=== PATIENT | male | born 1950 | race Caucasian/White ===

== ENCOUNTER 2018-03-24 15:50 | Inpatient (IN) | payer OTHER ==
--- NOTE | 2018-03-24 16:11 | PDOC ---
Attending Attestation - HPI HPI: 03/24/18 17:14 The patient is a year old male, with a significant past medical history of cerebral palsy and polio with left hemiparesis, s/p 1 week hospital stay in December 2017, who presents to the emergency department with his sister and MELTER LOADER for evaluation of SOB since 3PM. As per the sister and MELTER LOADER, the patient was feeling well prior to attending a green party at his adult day care today, however, the daycare staff called the family to inform the patient had become SOB. The patient states he was feeling well earlier today. The patient denies chest pain, shortness of breath, headache and dizziness. The patient denies fever, chills, nausea, vomit, diarrhea and constipation. The patient denies dysuria, frequency, urgency and hematuria. Allergies: NKDA - Physicial Exam PE: 03/24/18 17:17 Constitutional: Awake, alert, oriented. No acute distress. Head: Normocephalic. Atraumatic Eyes: PERRL. EOMI. Conjunctivae are not pale. ENT: (+) Dry oral mucosa. Mucous membranes are intact. Posterior pharynx without exudates or erythema. Uvula midline. Neck: Supple. Full ROM. No lymphadenopathy. Cardiovascular: (+) Tachycardic. Regular rhythm. S1, S2 regular. Distal pulses are 2+ and symmetric. Pulmonary/Chest: (+) Tachypneic, Coarse BS bilaterally with diffuse wheezing. No rales or rhonchi. Abdominal: (+) Suprapubic catheter in place and changed x1 week ago by Dr. Coffman draining yellow clear urine now. Soft and non-distended. There is no tenderness. No rebound, guarding or rigidity. No organomegaly. No palpable masses. Good bowel sounds. Back: No CVA tenderness. Musculoskeletal: (+) LUE contracted hand and extended bilateral LE without edema. Pedal pulses intact. No edema. No cyanosis. No clubbing. Full range of motion in all extremities. Nocalf tenderness. Radial/pedal pulses are intact and 2+ bilaterally Skin: (+) Hot to the touch. No petechiae. No purpura. Neurological: Alert and oriented to person, place, and time. Cranial nerves II -XII are grossly intact. Strength is grossly symmetric. No sensory deficits. Psychiatric: Good eye contact. Normal interaction, affect and behavior. <Vanna Medina - Last Filed: 03/24/18 17:17> - Resident Resident Name: Brigid Krishna - ED Attending Attestation I have performed the following: I have examined & evaluated the patient, The case was reviewed & discussed with the resident, I agree w/resident's findings & plan, Exceptions are as noted - Critical Care Time Total Critical Care Time: 45 Critical Care Statement: The care of this patient involved high complexity decision making to prevent further life threatening deterioration of the patient 's condition and/or to evaluate & treat vital organ system(s) failure or risk of failure. - Medical Decision Making 03/24/18 16:11 I, Dr. Roxanne Cr, DO, attest that this document has been prepared under my direction and personally reviewed by me in its entirety. I further attest, that it accurately reflects all work, treatment, procedures and medical decision -making performed by me. 03/24/18 17:06 a/p: 67yo male with hx of polio and CP presnets from his adult daycare program for eval of sob/cough -was fine prior to going to daycare -presents with sister and home health aide who cares for him at home -pt hypoxic with wheezing upon arrival -pt with cough - rhonchorous bs b/l -no LE edema -will send labs, trop, ekg, lactate, cultures -will start broad spectrum abx - recently hospitalized at [facility] (his normal hospital) for a week in December -will need admission 03/24/18 17:49 elevated R hemidiaphragm no acute pna seen elevated wbc ua shows poss uti broad spectrum abx ordered and given pt feeling better after neb tx suspect acute bronchitis and uti will admit resident discussed the case with [facility] who accepts the patient to service <Roxanne Cr - Last Filed: 03/24/18 17:53> Heart Score/ECG Review - ECG Intrepretation Comment:: 03/24/18 17:05 sinus tach at 122, nl axis, nl interval, pac, no acute st/t wave findings <Roxanne Cr - Last Filed: 03/24/18 17:53>
[2018-03-24 16:12] VITALS: BMI 22.4
[2018-03-24] MEDS ORDERED: ALBUTEROL SO4 2.5/IPRATROPIUM 0.5 INH SOL 3 ML VIAL.NEB. NEB ONE ×5 (16:28→18:49)
[2018-03-24] MEDS ORDERED: ACETAMINOPHEN 1000 MG/100 ML VIAL (NON FORMULARY) IVPB ONE (16:29)
[2018-03-24] MEDS ORDERED: methylPREDNISolone NA SUCC 125 MG/2 ML VIAL IVPB ONE (16:29)
[2018-03-24] MEDS ORDERED: SODIUM CHLORIDE 0.9% 1000 ML INFUS.BAG IV ONE (16:29)
[2018-03-24] MEDS ORDERED: VANCOMYCIN 1,000 MG in DEXTROSE 5%-WATER - 250 ML IVPB ONE (16:31)
[2018-03-24] MEDS ORDERED: PIPERACILLIN/TAZOB 4.5 GM 4.5 GM in DEXTROSE 5%-WATER 100 ML IVPB ONE (16:31)
[2018-03-24 16:32] LABS: BASO % 0.2 % (0-2.0); EOS % 0.2 % (0-4.5); HEMATOCRIT 43.7 % (35.4-49); HEMOGLOBIN 14.4 GM/dL (11.7-16.9); LYMPH % 3.8 % (8-40); MCH 29.7 pg (25.7-33.7); MEAN CELL VOLUME 89.9 fl (80-96); MEAN PLT VOLUME 9.4 fl (7.5-11.1); MONO % 13.7 % (3.8-10.2); NEUT % 82.1 % (42.8-82.8); PLATELET COUNT 130 K/MM3 (134-434); RBC 4.86 M/mm3 (4.00-5.60); RDW 15.6 % (11.9-15.9); WHITE BLOOD COUNT 18.4 K/mm3 (4.0-10.0)
[2018-03-24 16:34] LABS: VENOUS PH 7.37 (7.32-7.42); VENOUS PO2 36.7 mmHg (28-48)
[2018-03-24] MEDS ORDERED: PIPERACILLIN/TAZOB 4.5 GM 4.5 GM/100 ML BAG IVPB ONE (16:38)
[2018-03-24] MEDS ORDERED: methylPREDNISolone NA SUCC 125 MG/2 ML VIAL ONE (16:38)
--- NOTE | 2018-03-24 16:38 | PDOC ---
History of Present Illness - General Chief Complaint: Respiratory Distress Stated Complaint: Respiratory Distress Time Seen by Provider: 03/24/18 15:55 History Source: Patient, Care Provider Exam Limitations: No Limitations - History of Present Illness Initial Comments: 03/24/18 16:38 67 year old with past medical history of polio, congenital L hemiparesis, cerebal palsy and recent hospitalization who was BIBA for complaints of shortness of breath while at a social program at assisted living. At bedside his nursing home admissions director denied recent illness, fever, nausea, diarrhea and notes that the patient has a suprapubic catheter. The patient denies chest pain, dizziness, abdominal pain or chills. PMHX: as in HPI PSHX: Meds: baclofen, acetazolamide, atorvastatin, oxybutynin Allergies: none Tob: none Etoh: none Rec drugs: none PCP: Freddy Past History - Past Medical History Allergies/Adverse Reactions: Allergies Allergy/AdvReac Type Severity Reaction Status Date / Time shrimp Allergy Unknown Hives Verified 03/25/18 03:12 Home Medications: Ambulatory Orders Atorvastatin Ca [Lipitor] 40 mg PO HS 03/24/18 Baclofen 20 mg PO TID 03/24/18 Multivitamin [One Daily] 1 each PO DAILY 03/24/18 Oxybutynin Chloride [Ditropan Xl] 10 mg PO DAILY 03/24/18 Albuterol 2.5/Ipratropium 0.5 [Duoneb -] 1 amp NEB Q4H #120 amp 03/30/18 Albuterol Sulfate Inhaler - [Ventolin HFA Inhaler -] 2 puff IH Q4H PRN #1 inhaler 03/30/18 Amox-Tr/K Cl [Augmentin Suspension -] 750 mg PO BID@0800,1730 #120 ml 03/30/18 Pantoprazole Sodium [Protonix -] 40 mg PO DAILY #30 tablet.ec 03/30/18 Prednisone 10 mg PO BID #30 tablet 03/30/18 COPD: No Other medical history: cerebral palsy, dyskinesia , polio - Suicide/Smoking/Psychosocial Hx Smoking History: Never smoked Substance Use Type: None *Physical Exam - Vital Signs Last Vital Signs Temp Pulse Resp BP Pulse Ox 102.0 F H 140 H 30 H 148/100 78 L 03/24/18 16:09 03/24/18 16:09 03/24/18 16:09 03/24/18 16:09 03/24/18 16:09 - Physical Exam Comments: GENERAL: Awake, alert, and fully oriented, in no acute distress HEAD: No signs of trauma, normocephalic, atraumatic EYES: PERRLA, EOMI, sclera anicteric, conjunctiva clear ENT: Auricles normal inspection, hearing grossly normal, nares patent, oropharynx clear without exudates. Moist mucosa NECK: Normal ROM, supple, no lymphadenopathy, JVD, or masses LUNGS: No distress, speaks full sentences, + wheeze HEART: Regular rate and rhythm, normal S1 and S2, no murmurs, rubs or gallops, peripheral pulses normal and equal bilaterally. ABDOMEN: Soft, nontender, normoactive bowel sounds. No guarding, no rebound. No masses EXTREMITIES : Normal inspection, Normal range of motion, no edema. No clubbing or cyanosis. NEUROLOGICAL: Normal speech, normal gait, no focal sensorimotor deficits SKIN: Warm, Dry, normal turgor, no rashes or lesions noted ED Treatment Course - LABORATORY CBC & Chemistry Diagram: 03/27/18 06:15 03/29/18 05:30 - ADDITIONAL ORDERS Additional order review: Laboratory Results 03/24/18 16:05 VBG pH 7.37 POC VBG pCO2 65.0 H* POC VBG pO2 36.7 Mixed VBG HCO3 36.7 H 03/24/18 16:05 RBC 4.86 MCV 89.9 MCHC 33.0 RDW 15.6 MPV 9.4 Neutrophils % 82.1 Lymphocytes % 3.8 L Monocytes % 13.7 H Eosinophils % 0.2 Basophils % 0.2 Medical Decision Making - Medical Decision Making 67 year old with past medical history of polio, congenital L hemiparesis, cerebal palsy and recent hospitalization who was BIBA for complaints of shortness of breath while at a social program at assisted living. DDX: bronchitis vs PNA W/U: - sepsis set ED Course: Patient satting 97% on 9L NC 03/24/18 18:00 Pt given duoneb treatment, feels improved 03/24/18 19:49 UA: wbc: 424 Pt admitted to medicine service *DC/Admit/Observation/Transfer Diagnosis at time of Disposition: UTI (urinary tract infection), Bronchitis - Discharge Dispostion Disposition: VNS/HOME HEALTH CARE Condition at time of disposition: Improved - Prescriptions - Referrals - Patient Instructions - Post Discharge Activity
[2018-03-24 16:46] LABS: INR 1.18 (0.83-1.09); PROTHROMBIN TIME (PATIENT) 13.3 SEC (9.7-13.0)
[2018-03-24 16:56] LABS: ALBUMIN 2.9 g/dl (3.4-5.0); ANION GAP 6 MMOL/L (8-16); BILIRUBIN,TOTAL 0.4 mg/dL (0.2-1.0); BLOOD UREA NITROGEN 16 mg/dL (7-18); CALCIUM 8.8 mg/dL (8.5-10.1); CHLORIDE 93 mmol/L (98-107); CO2 36 mmol/L (21-32); CREATININE 0.7 mg/dL (0.7-1.3); GLUCOSE,RANDOM 160 mg/dL (74-106); POTASSIUM 3.8 mmol/L (3.5-5.1); SGOT/AST 25 U/L (15-37); SGPT/ALT 31 U/L (12-78); SODIUM 135 mmol/L (136-145); TOT PROT 6.6 g/dl (6.4-8.2)
[2018-03-24 16:58] LABS: ALK PHOS 139 U/L (45-117)
[2018-03-24 17:12] LABS: URINE APPEARANCE TURBID; URINE BILIRUBIN NEGATIVE (<2.0 mg/dL); URINE COLOR AMBER; URINE GLUCOSE (UA) NEGATIVE (NEGATIVE); URINE KETONE NEGATIVE (NEGATIVE); URINE LEUK ESTERASE 3+ (NEGATIVE); URINE NITRITE NEGATIVE (NEGATIVE); URINE PROTEIN 2+ (NEGATIVE); URINE UROBILINOGEN 4.0 E.U/dl mg/dL (0.2-1.0)
[2018-03-24] MEDS ORDERED: ACETAMINOPHEN INJECTION 100 ML IVPB ONE (17:16)
[2018-03-24 17:26] LABS: EPI CELLS FEW /HPF (FEW); URINE BACTERIA RARE /hpf (NONE SEEN); URINE MUCUS MANY
[2018-03-24] MEDS ORDERED: ALBUTEROL SO4 0.083% IH SOL 2.5 MG/3 ML VIAL.NEB. NEB ONE ×2 (17:26→17:27)
[2018-03-24] MEDS ORDERED: VANCOMYCIN 1 GRAM (PRE-DOCKED) 1,000 MG/250 ML BAG IVPB ONE (17:26)
[2018-03-24] MEDS ORDERED: ALBUTEROL SO4 8 GM HFA INHALER IH PRN (18:58)
--- NOTE | 2018-03-24 18:58 | PN ---
Teaching Attending Note Name of Resident: Anjelica Arredondo ATTENDING PHYSICIAN STATEMENT I saw and evaluated the patient. I reviewed the resident's note and discussed the case with the resident. I agree with the resident's findings and plan as documented. SUBJECTIVE: Patient is a 67M w/ pmhx of cerebral palsy , polio with L hemiparesis , with chronic suprapubic catheter (30Yrs) presented in the ED with shortness of breath. Presented to ED with tachypnea and tachycardic. Patient presented with saturatioon of 74%, place on NR in ED. satrurating >93%. with fever of 102F. Patient was at [facility] a week ago fr Pneumonia, was discharged home a week ago. OBJECTIVE: Vital Signs Temperature 102.0 F H 03/24/18 16:09 Pulse Rate 117 H 03/24/18 17:43 Respiratory Rate 22 03/24/18 17:43 Blood Pressure 145/78 03/24/18 17:43 O2 Sat by Pulse Oximetry (%) 96 03/24/18 17:43 CBCD WBC 18.4 K/mm3 (4.0-10.0) H 03/24/18 16:05 RBC 4.86 M/mm3 (4.00-5.60) 03/24/18 16:05 Hgb 14.4 GM/dL (11.7-16.9) 03/24/18 16:05 Hct 43.7 % (35.4-49) 03/24/18 16:05 MCV 89.9 fl (80-96) 03/24/18 16:05 MCHC 33.0 g/dl (32.0-35.9) 03/24/18 16:05 RDW 15.6 % (11.9-15.9) 03/24/18 16:05 Plt Count 130 K/MM3 (134-434) L 03/24/18 16:05 MPV 9.4 fl (7.5-11.1) 03/24/18 16:05 CMP Sodium 135 mmol/L (136-145) L 03/24/18 16:05 Potassium 3.8 mmol/L (3.5-5.1) 03/24/18 16:05 Chloride 93 mmol/L (98-107) L 03/24/18 16:05 Carbon Dioxide 36 mmol/L (21-32) H 03/24/18 16:05 Anion Gap 6 MMOL/L (8-16) L 03/24/18 16:05 BUN 16 mg/dL (7-18) 03/24/18 16:05 Creatinine 0.7 mg/dL (0.7-1.3) 03/24/18 16:05 Creat Clearance w eGFR > 60 (>60) 03/24/18 16:05 Random Glucose 160 mg/dL (74-106) H 03/24/18 16:05 Calcium 8.8 mg/dL (8.5-10.1) 03/24/18 16:05 Total Bilirubin 0.4 mg/dL (0.2-1.0) 03/24/18 16:05 AST 25 U/L (15-37) 03/24/18 16:05 ALT 31 U/L (12-78) 03/24/18 16:05 Alkaline Phosphatase 139 U/L (45-117) H 03/24/18 16:05 Total Protein 6.6 g/dl (6.4-8.2) 03/24/18 16:05 Albumin 2.9 g/dl (3.4-5.0) L 03/24/18 16:05 CARDIAC ENZYMES Troponin I < 0.02 ng/ml (0.00-0.05) 03/24/18 16:05 Current Medications Generic Name Dose Route Start Last Admin Trade Name Freq PRN Reason Stop Dose Admin Albuterol/Ipratropium 1 amp 03/24/18 19:00 Duoneb - NEB Q4H YASMINE Heparin Sodium (Porcine) 5,000 unit 03/24/18 19:00 Heparin - SQ TID YASMINE Piperacillin Sod/Tazobactam 100 mls @ 200 mls/hr 03/24/18 21:00 Sod 4.5 gm/ Dextrose IVPB Q6H-IV YASMINE Protocol Piperacillin Sod/Tazobactam 100 mls @ 200 mls/hr 03/24/18 21:00 Sod 4.5 gm/ Dextrose IVPB 03/25/18 09:29 Q6H-IV YASMINE Protocol PE: generally awake and answers questions . Chest: Decreased BS bl retracting. CVS: S1S2 positive , tachycardic EXT: deformed rest of PE per resident's note Urine Test Results Urine Color Filomena 03/24/18 16:55 Urine Appearance Turbid 03/24/18 16:55 Urine pH 7.0 (5.0-8.0) 03/24/18 16:55 Ur Specific [place] 1.025 (1.001-1.035) 03/24/18 16:55 Urine Protein 2+ (NEGATIVE) H 03/24/18 16:55 Urine Glucose (UA) Negative (NEGATIVE) 03/24/18 16:55 Urine Ketones Negative (NEGATIVE) 03/24/18 16:55 Urine Blood 1+ (NEGATIVE) H 03/24/18 16:55 Urine Nitrite Negative (NEGATIVE) 03/24/18 16:55 Urine Bilirubin Negative (<2.0 mg/dL) 03/24/18 16:55 Ur Leukocyte Esterase 3+ (NEGATIVE) H 03/24/18 16:55 Ur Epithelial Cells Few /HPF (FEW) 03/24/18 16:55 Urine Bacteria Rare /hpf (NONE SEEN) 03/24/18 16:55 Urine Mucus Many 03/24/18 16:55 CXR: Hiatel hernia on the right side. ASSESSMENT AND PLAN: Patient is a 67M w/ pmhx of cerebral palsy , polio with L hemiparesis , with chronic suprapubic catheter (30Yrs) presented in the ED with shortness of breath. Presented to ED with tachypnea and tachycardic. Patient presented with saturatioon of 74%, place on NR in ED. satrurating >93%. with fever of 102F. Patient was at [facility] a week ago fr Pneumonia, was discharged home a week ago. # Acute hypoxic hypercapnic respiratoty failure On bipap ,continue to monitor, pulm on the case # sepsis due to UTI and B/L pneumonia can't r/o aspiration ( patient was eating and patient went at a green party where everyone was sick) at the green party On zosyn since recently was discharged from [facility]. Given a dose of Vanco in ED. on Steroid 60 q8 IV, protonix ID on the case DVt px; Heparin sq
--- NOTE | 2018-03-24 19:27 | HP ---
CHIEF COMPLAINT: shortness of breath PCP: HISTORY OF PRESENT ILLNESS: 67M w/ pmhx of cerebral palsy (with chronic suprapubic catheter x30 years), polio with L hemiparesis presented in the ED with shortness of breath. According to pt's sister and home health aide, pt was about to go home after attending a constitution party at his adult daycare center when he started complaining to the nurse at the center that he was having trouble breathing. The nurse at the adult daycare center contacted pt's family around 2:50pm and called EMS to bring pt to the hospital. Pt denies any symptoms earlier that day. Denies chest pain, headaches/dizziness, nausea/vomiting, abdominal pain, urinary/bowel symptoms, weakness. He does complain of acid reflux yesterday after eating spaghetti and took Tums which relieved his symptoms. During the past week, pt complained of a mild cough with no productive sputum. Pt also admits that he has been exposed to many people at his daycare center with a cold. Pt has a breathing machine at home for albuterol, but denies using it within the past week. Upon initial presentation, pt was found to be febrile at 102, tachycardic at 135 , with dry cough and wheezes. Of note, pt was recently admitted to [facility] for PNA and was discharged on antibiotics. Additionally, pt's suprapubic catheter is also changed once a month and was recently changed yesterday (03/23) by Dr. Coffman. ER course was notable for: (1) CXR, blood and urine cx pending (2) In the ED, pt given Vanc/Zosyn, Solumedrol, Tylenol (3) U/A: 2+ Pro, 1+ blood, 3+ LE Recent Travel: Denies PAST MEDICAL HISTORY: Cerebral palsy (w/ chronic suprapubic catheter x30yrs) Polio w/ L hemiparesis PAST SURGICAL HISTORY: Chronic suprapubic catheter appendectomy x20 years ago Social History: Smoking: Denies Alcohol: Denies Drugs: Denies Family History: Mother- Alzheimer's, heart disease, DM, HTN, HLD Maternal Aunt- Breast cx Allergies No Known Allergies Allergy (Verified 03/24/18 16:09) HOME MEDICATIONS: Medication Instructions Recorded Atorvastatin Ca [Lipitor] 40 mg PO HS 03/24/18 Baclofen 20 mg PO TID 03/24/18 Multivitamin [One Daily] 1 each PO DAILY 03/24/18 Oxybutynin Chloride [Ditropan Xl] 10 mg PO DAILY 03/24/18 traZODone HCL [Trazodone HCl] 50 mg PO HS 03/24/18 REVIEW OF SYSTEMS CONSTITUTIONAL: fever Absent: chills, diaphoresis, generalized weakness, malaise, loss of appetite, weight change HEENT: Absent: rhinorrhea, nasal congestion, throat pain, throat swelling, difficulty swallowing, mouth swelling, ear pain, eye pain, visual changes CARDIOVASCULAR: Absent: chest pain, syncope, palpitations, irregular heart rate, lightheadedness , peripheral edema RESPIRATORY: shortness of breath, dry cough Absent: dyspnea with exertion, orthopnea, wheezing, stridor, hemoptysis GASTROINTESTINAL: Absent: abdominal pain, abdominal distension, nausea, vomiting, diarrhea, constipation, melena, hematochezia GENITOURINARY: Absent: dysuria, frequency, urgency, hesitancy, hematuria, flank pain, genital pain MUSCULOSKELETAL: Absent: myalgia, arthralgia, joint swelling, back pain, neck pain SKIN: Absent: rash, itching, pallor ENDOCRINE: Absent: unexplained weight gain, unexplained weight loss, heat intolerance, cold intolerance NEUROLOGIC: wheelchair bound, chronic reyna due to urinary retention Absent: headache, focal weakness or paresthesias, dizziness, seizure, mental status changes, bowel incontinence PHYSICAL EXAMINATION Vital Signs - 24 hr 03/24/18 03/24/18 03/24/18 16:00 16:09 17:03 Temperature 102 F H 102.0 F H Pulse Rate 135 H 140 H Pulse Rate [ 117 H Apical] Respiratory 24 30 H 24 Rate Blood Pressure 152/113 148/100 Blood Pressure 147/83 [Left Arm] O2 Sat by Pulse 96 78 L 97 Oximetry (%) 03/24/18 03/24/18 17:43 18:24 Temperature 101 F H Pulse Rate Pulse Rate [ 117 H 116 H Apical] Respiratory 22 116 H Rate Blood Pressure Blood Pressure 145/78 143/80 [Left Arm] O2 Sat by Pulse 96 Oximetry (%) GENERAL: Awake, alert, and fully oriented. Respiratory distress. HEENT: AT/NC. Dry mucus membranes. LUNGS: Currently on nonrebreather. Tachypneic. Accessory muscle use noted. HEART: Tachycardic. Normal S1, S2. No murmurs, rubs, gallop noted. ABDOMEN: Abd soft, NT/ND. +BS. Suprapubic catheter in place. : Reyna bag seen with cloudy yellow urine. MUSCULOSKELETAL: U/L extremities b/l contracted. No peripheral edema. NEUROLOGICAL: Unable to perform neuro exam. PSYCHIATRIC: Cooperative. Good eye contact. Appropriate mood and affect. SKIN: No rashes or lesions noted. Laboratory Results - last 24 hr 03/24/18 03/24/18 03/24/18 16:05 16:05 16:05 WBC 18.4 H RBC 4.86 Hgb 14.4 Hct 43.7 MCV 89.9 MCH 29.7 MCHC 33.0 RDW 15.6 Plt Count 130 L MPV 9.4 Absolute Neuts (auto) 15.1 H Neutrophils % 82.1 Lymphocytes % 3.8 L Monocytes % 13.7 H Eosinophils % 0.2 Basophils % 0.2 Nucleated RBC % 0 PT with INR 13.30 H INR 1.18 H PTT (Actin FS) 33.0 VBG pH 7.37 POC VBG pCO2 65.0 H* POC VBG pO2 36.7 Mixed VBG HCO3 36.7 H Sodium Potassium Chloride Carbon Dioxide Anion Gap BUN Creatinine Creat Clearance w eGFR Random Glucose Lactic Acid Calcium Magnesium Total Bilirubin AST ALT Alkaline Phosphatase Troponin I B-Natriuretic Peptide Total Protein Albumin Urine Color Urine Appearance Urine pH Ur Specific [place] Urine Protein Urine Glucose (UA) Urine Ketones Urine Blood Urine Nitrite Urine Bilirubin Urine Urobilinogen Ur Leukocyte Esterase Urine WBC (Auto) Urine RBC (Auto) Ur Epithelial Cells Urine Bacteria Urine Mucus Blood Type Antibody Screen 03/24/18 03/24/18 03/24/18 16:05 16:05 16:05 WBC RBC Hgb Hct MCV MCH MCHC RDW Plt Count MPV Absolute Neuts (auto) Neutrophils % Lymphocytes % Monocytes % Eosinophils % Basophils % Nucleated RBC % PT with INR INR PTT (Actin FS) VBG pH POC VBG pCO2 POC VBG pO2 Mixed VBG HCO3 Sodium 135 L Potassium 3.8 Chloride 93 L Carbon Dioxide 36 H Anion Gap 6 L BUN 16 Creatinine 0.7 Creat Clearance w eGFR > 60 Random Glucose 160 H Lactic Acid 1.5 Calcium 8.8 Magnesium Total Bilirubin 0.4 AST 25 ALT 31 Alkaline Phosphatase 139 H Troponin I B-Natriuretic Peptide Total Protein 6.6 Albumin 2.9 L Urine Color Urine Appearance Urine pH Ur Specific [place] Urine Protein Urine Glucose (UA) Urine Ketones Urine Blood Urine Nitrite Urine Bilirubin Urine Urobilinogen Ur Leukocyte Esterase Urine WBC (Auto) Urine RBC (Auto) Ur Epithelial Cells Urine Bacteria Urine Mucus Blood Type A POSITIVE Antibody Screen Negative 03/24/18 03/24/18 03/24/18 16:05 16:05 16:05 WBC RBC Hgb Hct MCV MCH MCHC RDW Plt Count MPV Absolute Neuts (auto) Neutrophils % Lymphocytes % Monocytes % Eosinophils % Basophils % Nucleated RBC % PT with INR INR PTT (Actin FS) VBG pH POC VBG pCO2 POC VBG pO2 Mixed VBG HCO3 Sodium Potassium Chloride Carbon Dioxide Anion Gap BUN Creatinine Creat Clearance w eGFR Random Glucose Lactic Acid Calcium Magnesium 2.0 Total Bilirubin AST ALT Alkaline Phosphatase Troponin I < 0.02 B-Natriuretic Peptide 447.57 H Total Protein Albumin Urine Color Urine Appearance Urine pH Ur Specific [place] Urine Protein Urine Glucose (UA) Urine Ketones Urine Blood Urine Nitrite Urine Bilirubin Urine Urobilinogen Ur Leukocyte Esterase Urine WBC (Auto) Urine RBC (Auto) Ur Epithelial Cells Urine Bacteria Urine Mucus Blood Type Antibody Screen 03/24/18 16:55 WBC RBC Hgb Hct MCV MCH MCHC RDW Plt Count MPV Absolute Neuts (auto) Neutrophils % Lymphocytes % Monocytes % Eosinophils % Basophils % Nucleated RBC % PT with INR INR PTT (Actin FS) VBG pH POC VBG pCO2 POC VBG pO2 Mixed VBG HCO3 Sodium Potassium Chloride Carbon Dioxide Anion Gap BUN Creatinine Creat Clearance w eGFR Random Glucose Lactic Acid Calcium Magnesium Total Bilirubin AST ALT Alkaline Phosphatase Troponin I B-Natriuretic Peptide Total Protein Albumin Urine Color Filomena Urine Appearance Turbid Urine pH 7.0 Ur Specific [place] 1.025 Urine Protein 2+ H Urine Glucose (UA) Negative Urine Ketones Negative Urine Blood 1+ H Urine Nitrite Negative Urine Bilirubin Negative Urine Urobilinogen 4.0 e.u/dl Ur Leukocyte Esterase 3+ H Urine WBC (Auto) 424 Urine RBC (Auto) 39 Ur Epithelial Cells Few Urine Bacteria Rare Urine Mucus Many Blood Type Antibody Screen Current Medications Albuterol Sulfate (Ventolin Hfa Inhaler -) 2 puff IH Q4H PRN PRN Reason: SHORT OF BREATH/WHEEZING Last Admin: 03/24/18 19:51 Dose: 2 puff Albuterol/Ipratropium (Duoneb -) 1 amp NEB Q4H YASMINE Last Admin: 03/24/18 19:37 Dose: 1 amp Atorvastatin Calcium (Lipitor -) 40 mg PO HS YASMINE Heparin Sodium (Porcine) (Heparin -) 5,000 unit SQ TID YASMINE Last Admin: 03/24/18 19:50 Dose: 5,000 unit Piperacillin Sod/Tazobactam (Sod 4.5 gm/ Dextrose) 100 mls @ 200 mls/hr IVPB Q6H-IV YASMINE; Protocol Stop: 03/25/18 09:29 Methylprednisolone Sodium Succinate (Solu-Medrol -) 60 mg IVPUSH Q8H-IV YSAMINE Last Admin: 03/24/18 19:55 Dose: 60 mg Pantoprazole Sodium (Protonix Iv) 40 mg IVPUSH DAILY YASMINE Solifenacin (Vesicare -) 5 mg PO DAILY YASMINE IMAGING: CXR- pending ASSESSMENT/PLAN: 67M w/ pmhx of cerebral palsy (with chronic suprapubic catheter x30 years), Polio with L hemiparesis presented in the ED with shortness of breath admitted for sepsis 2/2 pneumonia and UTI. # Acute hypoxic hypercapnic respiratory failure -currently on BiPAP -f/u pulm consult -f/u ABG in AM #Tachycardia 2/2 sepsis, r/o arrhythmia -f/u cardio consult -trend trops -f/u repeat ECG -f/u Mag, Phos #Sepsis 2/2 CAP and UTI, r/o aspiration pna; Pt has cloudy urine seen in reyna bag and attended a constitution party around others who were also sick. -Duonebs 2.5 1 amp neg Q4H -Solumedrol 60 mg IVP Q6H -Ventolin inhaler 2 puff IH Q4H PRN -Zosyn 4.5 gm IVPB Q6H -f/u blood, sputum, urine cx -f/u lactate -f/u Legionella, S PNA Ag, RSV -f/u ID consult #Cerebral palsy; Pt has been on chronic reyna x30 years due to urinary retention and persistent UTI, gets changed C4adimn. 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 - New Patient This patient is new to me today: Yes Date on this admission: 03/24/18 - Critical Care Critical Care patient: No Hospitalist Screening - Colonoscopy Questionnaire Colonoscopy Questionnaire: Colonoscopy Questionnaire - Patient: 50 - 75 years old and never had a screening colonoscopy: Unknown History of colon or rectal polyps, or CA: Unknown History of IBD, Crohn's disease or UC: Unknown History of abdominal radiation therapy as a child: Unknown - Relative: 1 with colon or rectal CA, or polyps at age 60 or younger: Unknown Colon or rectal CA diagnosed at age 45 or younger: Unknown Multiple relatives with colon or rectal CA: Unknown - Outcome: Screening Result: Negative Screen
[2018-03-24] MEDS: ALBUTEROL SO4 2.5/IPRATROPIUM 0.5 INH SOL 3 ML VIAL.NEB. NEB SCH (19:37)
[2018-03-24] MEDS ORDERED: PIPERACILLIN/TAZOBACTAM 4.5 GM VIAL IVPB ONE (19:40)
[2018-03-24] MEDS ORDERED: DEXTROSE 5%-WATER 100 ML IVPB ONE (19:41)
[2018-03-24] MEDS: HEPARIN NA (PORCINE) 5,000 UNITS/ML 1ML VIAL SQ SCH (19:50)
[2018-03-24] MEDS: methylPREDNISolone NA SUCC 125 MG/2 ML VIAL IVPUSH SCH (19:55)
[2018-03-24] MEDS ORDERED: PIPERACILLIN/TAZOB 4.5 GM 4.5 GM in DEXTROSE 5%-WATER 100 ML IVPB SCH (21:00)
[2018-03-24] MEDS: PIPERACILLIN/TAZOB 4.5 GM 4.5 GM in DEXTROSE 5%-WATER 100 ML IVPB SCH (21:02)
[2018-03-24] MEDS: ATORVASTATIN CA 40 MG TABLET (FP) PO SCH (21:03)
[2018-03-25 00:11] LABS: ARTERIAL BLD GAS O2 SATURATION 99.4 % (90-98.9); ARTERIAL BLOOD GAS BASE EXCESS 3.1 meq/l (-2-2); ARTERIAL BLOOD GAS pH 7.29 (7.35-7.45)
[2018-03-25 00:14] LABS: ALLENS TEST POSITIVE
[2018-03-25] MEDS: ALBUTEROL SO4 2.5/IPRATROPIUM 0.5 INH SOL 3 ML VIAL.NEB. NEB SCH ×6 (00:17→21:36)
[2018-03-25 00:20] LABS: ARTERIAL BLOOD GAS PCO2 67.9 mmHg (35-45)
[2018-03-25] MEDS ORDERED: DEXTROSE 5%-WATER 100 ML IVPB ONE ×3 (01:07→18:17)
[2018-03-25] MEDS ORDERED: PIPERACILLIN/TAZOBACTAM 4.5 GM VIAL IVPB ONE ×3 (01:07→18:16)
[2018-03-25] MEDS: methylPREDNISolone NA SUCC 125 MG/2 ML VIAL IVPUSH SCH ×3 (01:13→18:33)
[2018-03-25] MEDS: PIPERACILLIN/TAZOB 4.5 GM 4.5 GM in DEXTROSE 5%-WATER 100 ML IVPB SCH ×3 (02:03→18:33)
[2018-03-25] MEDS: HEPARIN NA (PORCINE) 5,000 UNITS/ML 1ML VIAL SQ SCH ×3 (06:11→22:23)
[2018-03-25 06:42] LABS: ARTERIAL BLD GAS O2 SATURATION 97.7 % (90-98.9); ARTERIAL BLOOD GAS PO2 98.2 mmHg (80-100); ARTERIAL BLOOD GAS pH 7.31 (7.35-7.45)
[2018-03-25 07:01] LABS: ALLENS TEST POSITIVE
[2018-03-25 07:04] LABS: ARTERIAL BLOOD GAS PCO2 73.3 mmHg (35-45)
[2018-03-25 07:34] LABS: BASO % 0.3 % (0-2.0); EOS % 0.1 % (0-4.5); HEMOGLOBIN 13.1 GM/dL (11.7-16.9); LYMPH % 2.5 % (8-40); MCH 29.5 pg (25.7-33.7); MCHC 32.8 g/dl (32.0-35.9); MONO % 4.1 % (3.8-10.2); PLATELET COUNT 89 K/MM3 (134-434); RBC 4.44 M/mm3 (4.00-5.60); RDW 15.7 % (11.9-15.9); WHITE BLOOD COUNT 11.9 K/mm3 (4.0-10.0)
[2018-03-25 08:04] LABS: ALBUMIN 2.4 g/dl (3.4-5.0); ANION GAP 4 MMOL/L (8-16); BLOOD UREA NITROGEN 16 mg/dL (7-18); CHLORIDE 97 mmol/L (98-107); CHOLESTEROL 97 mg/dL (50-200); CO2 37 mmol/L (21-32); CREATININE 0.6 mg/dL (0.7-1.3); GLUCOSE,RANDOM 210 mg/dL (74-106); MAGNESIUM 2.1 mg/dL (1.8-2.4); POTASSIUM 4.1 mmol/L (3.5-5.1); SGOT/AST 16 U/L (15-37); SGPT/ALT 28 U/L (12-78); SODIUM 138 mmol/L (136-145); TOT PROT 5.7 g/dl (6.4-8.2); TRIGLYCERIDES 102 mg/dL (35-160)
[2018-03-25 08:07] LABS: ALK PHOS 99 U/L (45-117); BILIRUBIN,TOTAL 0.6 mg/dL (0.2-1.0); HDL CHOLESTEROL 13 mg/dL (40-60)
[2018-03-25 09:26] LABS: PLATELET ESTIMATE SLT DECREASE
--- NOTE | 2018-03-25 09:30 | PN ---
Progress Note, Physician History of Present Illness: 67M w/ pmhx of cerebral palsy (with chronic suprapubic catheter x30 years), Polio with L hemiparesis presented in the ED with shortness of breath admitted for sepsis 2/2 pneumonia and UTI. - Current Medication List Current Medications: Active Medications Albuterol Sulfate (Ventolin Hfa Inhaler -) 2 puff IH Q4H PRN PRN Reason: SHORT OF BREATH/WHEEZING Last Admin: 03/24/18 19:51 Dose: 2 puff Albuterol/Ipratropium (Duoneb -) 1 amp NEB Q4H YASMINE Last Admin: 03/25/18 08:10 Dose: 1 amp Atorvastatin Calcium (Lipitor -) 40 mg PO HS [facility] Last Admin: 03/24/18 21:03 Dose: Not Given Heparin Sodium (Porcine) (Heparin -) 5,000 unit SQ TID [facility] Last Admin: 03/25/18 06:11 Dose: 5,000 unit Methylprednisolone Sodium Succinate (Solu-Medrol -) 60 mg IVPUSH Q8H-IV [facility] Last Admin: 03/25/18 01:13 Dose: 60 mg Pantoprazole Sodium (Protonix Iv) 40 mg IVPUSH DAILY [facility] Pneumococcal 13-Valent Conj Vacc (Prevnar 13 Syringe -) 0.5 ml IM .ONCE ONE Stop: 03/25/18 10:01 Solifenacin (Vesicare -) 5 mg PO DAILY [facility] - Objective Vital Signs: Vital Signs Temperature 98.4 F 03/25/18 05:00 Pulse Rate 82 03/25/18 03:00 Respiratory Rate 103 H 03/25/18 05:00 Blood Pressure 138/86 03/25/18 05:00 O2 Sat by Pulse Oximetry (%) 98 03/25/18 08:10 Cardiovascular: Yes: S1, S2 Respiratory: Yes: Diminished, On BiPap Gastrointestinal: Yes: Normal Bowel Sounds, Soft Neurological: Yes: Alert Labs: CBC, BMP 03/25/18 07:06 03/25/18 07:06 INR, PTT INR 1.18 (0.83-1.09) H 03/24/18 16:05 Problem List - Problems (1) Sepsis Assessment/Plan: - 2/2 CAP and UTI, r/o aspiration pna; -Pt has cloudy urine seen in reyna bag and attended a alliance party around others who were also sick. -Zosyn 4.5 gm IVPB Q6H -f/u blood, sputum, urine cx -f/u lactate -f/u Legionella, S PNA Ag, RSV -f/u ID consult Code(s): A41.9 - SEPSIS, UNSPECIFIED ORGANISM (2) Cerebral palsy Assessment/Plan: . -hold Baclofen 20 mg PO TID due to WRAPPER SHEETER depression given pt's current clinical state -Neuro -hold Trazodone 50 mg PO HS due to WRAPPER SHEETER depression given pt's current clinical state Code(s): G80.9 - CEREBRAL PALSY, UNSPECIFIED (3) Respiratory failure Assessment/Plan: # Acute hypoxic hypercapnic respiratory failure -currently on BiPAP -f/u pulm consult -f/u ABG -Duonebs 2.5 1 amp neg Q4H -Solumedrol 60 mg IVP Q6H -Ventolin inhaler 2 puff IH Q4H PRN Code(s): J96.90 - RESPIRATORY FAILURE, UNSP, UNSP W HYPOXIA OR HYPERCAPNIA (4) Tachycardia Assessment/Plan: - 2/2 sepsis, r/o arrhythmia -f/u cardio consult -trend trops -f/u repeat ECG -f/u Mag, Phos Code(s): R00.0 - TACHYCARDIA, UNSPECIFIED (5) Overactive bladder Assessment/Plan: Pt has been on chronic reyna x30 years due to urinary retention gets changed [id number] Code(s): N32.81 - OVERACTIVE BLADDER
[2018-03-25] MEDS: PANTOPRAZOLE SODIUM 40 MG VIAL IVPUSH SCH (09:58)
[2018-03-25] MEDS: SOLIFENACIN SUCCINATE 5 MG TAB (FP) PO SCH (09:59)
[2018-03-25] MEDS ORDERED: PNEUMOC 13-VAL CONJ-DIP CRM/PF 0.5 ML DISP.SYRIN IM ONE (10:00)
--- NOTE | 2018-03-25 10:41 | PN ---
Progress Note (short form) - Note Progress Note: ID consult dictated imp/reccd 67 year old man pmh CP/polio, chronic spt just changed 03/23 by urologist, admitted with SOB from his day program fever to 102 in ED difficult historian ?hospitalized at [facility] in December for pneumonia ?sick for 2 weeks with cough recently treated for UTI 01/15, and bronchitis 01/27 cxray difficult to read due to body habitus currently hypoxic requiring bipap ua with pyuria fever/leukocytosis /thrombocytopenia pyuria with chronic SPT (just changed) hypoxic, hypercapneic resp failure cannot r/o pneumonia/uti CP Post polio consider chest ct if stable -await pulmonary eval f/u cultures, urinary antigens mrsa nares screen continue zosyn Problem List - Problems (1) Respiratory failure with hypoxia and hypercapnia Code(s): J96.91 - RESPIRATORY FAILURE, UNSPECIFIED WITH HYPOXIA; J96.92 - RESPIRATORY FAILURE, UNSPECIFIED WITH HYPERCAPNIA (2) Pneumonia Code(s): J18.9 - PNEUMONIA, UNSPECIFIED ORGANISM (3) UTI (urinary tract infection) Code(s): N39.0 - URINARY TRACT INFECTION, SITE NOT SPECIFIED (4) Cerebral palsy Code(s): G80.9 - CEREBRAL PALSY, UNSPECIFIED (5) Suprapubic catheter Code(s): Z93.59 - OTHER CYSTOSTOMY STATUS
--- NOTE | 2018-03-25 12:09 | PN ---
Progress Note (short form) - Note Progress Note: PULMONARY CONSULTATION DICTATED 03/25/18 IMP ACUTE HYPOXEMIC RESPIRATORY FAILURE ACUTE ON CHRONIC HYPERCAPNEIC RESPIRATORY FAILURE SEPSIS LIKELY PNEUMONIA ? UTI H/O CP H/O POLIO PLAN IV ABX PER ID INHALED BRONCHODILATORS NIPPV NEEDED O2 TO MAINTAIN O2 SAT 90% OR GREATER CULTURES URINARY ANTIGENS F/U CHEST X-RAYS CHEST CT F/U ABGS DR MUNOZ Problem List - Problems (1) Cerebral palsy Code(s): G80.9 - CEREBRAL PALSY, UNSPECIFIED (2) Pneumonia Code(s): J18.9 - PNEUMONIA, UNSPECIFIED ORGANISM (3) Respiratory failure with hypoxia and hypercapnia Code(s): J96.91 - RESPIRATORY FAILURE, UNSPECIFIED WITH HYPOXIA; J96.92 - RESPIRATORY FAILURE, UNSPECIFIED WITH HYPERCAPNIA (4) Sepsis Code(s): A41.9 - SEPSIS, UNSPECIFIED ORGANISM (5) Suprapubic catheter Code(s): Z93.59 - OTHER CYSTOSTOMY STATUS (6) Tachycardia Code(s): R00.0 - TACHYCARDIA, UNSPECIFIED
--- NOTE | 2018-03-25 13:03 | CONS ---
DATE OF CONSULTATION: 03/25/2018 REFERRING PHYSICIAN: Dr. Long. History is obtained from the chart. The patient is a 67-year-old white male with past medical history of cerebral palsy with a chronic suprapubic catheter approximately 30 years, history of polio with a left hemiparesis, admitted to [facility] with increasing shortness of breath. According to the patient records, patient was about to go home after attending a alliance party at an adult daycare center, when he passed out. He complained to his nurse at the center that he was having difficulty breathing. Notified around 2:50 p.m. EMS was called. Patient denied any complaints of chest pain, headache, dizziness, nausea, vomiting or diaphoresis. He apparently complained of reflux the day prior to admission after eating some spaghetti. Apparently during the past week, the patient had been complaining of a mild nonproductive cough. Apparently recently he has been exposed to people at [facility] with URI. Apparently he also has a nebulizer at home but has not used it within the past week. On presentation in the emergency room, patient was noted to be febrile with a temperature of 102, tachycardic, rate of 135, with dry cough and bronchospasm. He was treated with inhaled bronchodilators and antibiotics and transferred to medical telemetry for further management. Of note is he was recently hospitalized at [facility] for pneumonia and was discharged on antibiotics. He also recently underwent a suprapubic catheter change by Dr. Coffman on March 23. Past medical history, again, includes cerebral palsy, polio with eft hemiparesis. Current medications include Solu-Medrol, piperacillin, albuterol, DuoNeb, Vesicare, Lipitor, and Protonix. REVIEW OF SYSTEMS: Shortness of breath, fever, chills, cough, chest pain. No palpitations. PHYSICAL EXAMINATION: General: The patient is a contracted male, thin, well developed, on BiPAP, but appears clinically in no acute respiratory distress. Vital Signs: He is currently afebrile. Blood pressure 125/70. Respiratory rate is 18. O2 saturation is 98% on 40% O2. HEENT: Normocephalic, atraumatic. Neck: Supple. Heart: Regular, S1, S2. Chest: Scattered wheezes. Abdomen: Soft. Bowel sounds are positive. Extremities: No cyanosis, edema. LABORATORY DATA: BUN 16, creatinine 0.6, lactate is 1.5. BNP is 447, INR is 1.18, WBC 11.0, hemoglobin 13.1, hematocrit 40, platelet count 89,000. There are 92 polys, 4 lymphs, and 2 monocytes. Chest x-ray: There is elevated right hemidiaphragm, rotated film, questionable increased infiltrate in left mid lung field. Blood gas: Initial pH 7.29, pCO2 of 67, pO2 of 236, bicarbonate 31, saturation of 99, now is on BiPAP. Most recent: 7.31, pCO2 of 73, pO2 of 98, bicarbonate of 35, and a saturation 97, that was BiPAP, with an IPAP of 14, EPAP of 6, at a rate of 14. IMPRESSION: 1. Acute hypoxemic respiratory failure. 2. Acute on chronic hypercapnic respiratory failure. 3. Likely pneumonia, 4. Sepsis. ? Pneumonia ? 5. History of cerebral palsy. 6. History of polio with left hemiparesis. PLAN: BiPAP, follow up arterial blood gases, supplemental O2 to maintain O2 saturation 90% or greater, antibiotics as per Infectious Disease, obtain cultures, follow up chest x-rays, also inhaled bronchodilators. MIKAYLA MUNOZ M.D. STEWART/[id number] MTDD
--- NOTE | 2018-03-25 13:18 | CON.CARD ---
Consult Consult Specialty:: Cardiology Referred by:: Dr. Long Reason for Consultation:: Tachycardia - History of Present Illness History of Present Illness: Patient is a 67 year old male with a PMHx of Cerebral palsy, Polio with left hemiparesis, chronic suprapubic catheter (30+ years and changed once a month) who was sent from his adult daycare center by EMS after patient was complaining of shortness of breath. According to medical records, patient aide and sister report that he was complaining of acid reflux and cough with no sputum. Upon initial presentation in ED, patient was found to have sepsis. Further workup revealed UTI and Pneumonia and is currently on Antibiotics Patient is able to respond to questions. Denies shortness of breath, chest pain , abdominal pain, chest pain, palpitations, nausea, vomiting. - History Source History Provided By: Patient, Medical Record Limitations to Obtaining History: Clinical Condition - Past Medical History Additional Medical History: Cerebral Palsy. Polio with Left hemiparesis - Past Surgical History Past Surgical History: Yes: Appendectomy - Alcohol/Substance Use Hx Alcohol Use: No History of Substance Use: reports: None - Smoking History Smoking history: Never smoked Home Medications - Allergies Allergies/Adverse Reactions: Allergies Allergy/AdvReac Type Severity Reaction Status Date / Time shrimp Allergy Unknown Hives Verified 03/25/18 03:12 - Home Medications Home Medications: Ambulatory Orders Atorvastatin Ca [Lipitor] 40 mg PO HS 03/24/18 Baclofen 20 mg PO TID 03/24/18 Multivitamin [One Daily] 1 each PO DAILY 03/24/18 Oxybutynin Chloride [Ditropan Xl] 10 mg PO DAILY 03/24/18 traZODone HCL [Trazodone HCl] 50 mg PO HS 03/24/18 Review of Systems Unable to obtain ROS, reason: Clinical condition Vital Signs: Vital Signs Temperature 97.3 F L 03/25/18 09:35 Pulse Rate 84 03/25/18 09:35 Respiratory Rate 18 03/25/18 09:35 Blood Pressure 125/70 03/25/18 09:35 O2 Sat by Pulse Oximetry (%) 98 03/25/18 08:10 Constitutional: Yes: No Distress, Calm Eyes: Yes: Conjunctiva Clear HENT: Yes: Atraumatic, Normocephalic Neck: Yes: Other (no JVD) Respiratory: Yes: Diminished (bilaterally) Gastrointestinal: Yes: WNL, Normal Bowel Sounds, Soft Renal/: Yes: Other (Suprapubic catheter) Cardiovascular: Yes: WNL, Regular Rate and Rhythm JVD: No Heart Sounds: Yes: S1, S2 Extremities: Yes: Other (contracted upper and lower extremities) Edema: No Peripheral Pulses WNL: Yes Neurological: Yes: Alert - Other Data Labs, Other Data: CBC, BMP 03/25/18 07:06 03/25/18 07:06 INR, PTT INR 1.18 (0.83-1.09) H 03/24/18 16:05 Troponin, BNP 03/24/18 03/24/18 03/24/18 16:05 16:05 20:20 Troponin I < 0.02 < 0.02 B-Natriuretic Peptide 447.57 H Troponin, BNP 03/24/18 03/24/18 03/24/18 16:05 16:05 20:20 Troponin I < 0.02 < 0.02 B-Natriuretic Peptide 447.57 H Imaging - Results EKG: Report Reviewed, Image Reviewed Assessment/Plan Patient is a 67 year old male with a PMHx of cerebral palsy who was sent by EMS for shortness of breath. Patient was found to be hypoxic, tachycardic and further workup revealed UTI and Pneumonia. Patient admitted to telemetry for further monitoring and management. Tachycardia, Likely secondary to Sepsis -Patient now in NSR with no ST elevations on EKG -Troponins negative x2 -No events on monitor -Continue IV abx, as per ID and primary team Acute hypoxic hypercapnic respiratory failure -Likely secondary to Pneumonia -Currently saturating 95% on 2L NC HLD -Continue Atorvastatin 40mg daily HS
--- NOTE | 2018-03-25 14:07 | CONS ---
DATE OF CONSULTATION: 03/24/2018 REQUESTED BY: Neftaly Long MD This is a 67-year-old man with a past medical history of cerebral palsy and polio. He lives at home with his family. He attends an adult day program. He developed shortness of breath yesterday while he was at his day program and he was sent to the emergency room. He had acute hypoxemic hypercapnic respiratory failure requiring BiPAP which he is currently still on. He has a history of an admission for pneumonia several months ago. He has also been having a cough for the last two weeks. Per the papers from the half-way, he had an episode of UTI in January as well as an episode of bronchitis. He also had a suprapubic catheter change done on March 23. He is currently resting comfortably. He has no chest pain or abdominal pain. He is unable to tolerate being off the BiPAP. In the emergency room, he was given vancomycin, Zosyn, Solu-Medrol and Tylenol. PAST MEDICAL HISTORY: Notable for cerebral palsy. He has had polio with left hemiparesis. He has a chronic suprapubic catheter. PAST SURGICAL HISTORY: Appendectomy. ALLERGIES: No known drug allergies. SOCIAL HISTORY: No history of cigarettes, alcohol or substance use. FAMILY HISTORY: Notable for Alzheimer disease, heart disease, diabetes, hypertension and hyperlipidemia. CURRENT MEDICATIONS: Lipitor, Baclofen, multivitamins, Ditropan and trazodone. REVIEW OF SYSTEMS: Notable for cough and shortness of breath with fever. In the emergency room, he had a fever of 102. PHYSICAL EXAMINATION: VITALS: His temperature is currently 97.3, pulse 97.3, pulse 84, blood pressure 125/70, respiratory rate 18, saturating 98% on 40% oxygen. HEENT: Normocephalic. Eyes are anicteric. NECK: Supple. LUNGS: Diminished breath sounds at the bases. HEART: Regular rate and rhythm. ABDOMEN: Soft. His suprapubic catheter site is clean. There is no erythema. He is draining yellow-orange urine. EXTREMITIES: Contracted. SKIN: No breakdown or rash. LABS: Notable for an admission white count of 18,000 (this morning, 11.9), platelets are 89,000, hemoglobin is 13. INR is 1.18. BUN and creatinine are 16 and 0.6. Normal LFTs. A urinalysis shows 3+ leukocytes with 124 white cells. A chest x-ray is notable for an elevated right kim-diaphragm, prominent mediastinum and some atelectatic changes. It is hard to tell if there is a discrete infiltrate. IN SUMMARY: This is an 67-year-old man with cerebral palsy and a history of polio, admitted with fever, leukocytosis, thrombocytopenia, pyuria with chronic suprapubic catheter, hypoxia and hypercapnic respiratory failure. 1. Cannot rule out pneumonia; cannot rule out urinary tract infection. 2. Would consider chest CT if stable. 3. Would follow up cultures and urinary antigens. 4. Would culture swab from nares for MRSA. 5. Continue Zosyn as he has had a good response for his fever and a drop in his white count. 6. We will follow his cultures and further recommendations will follow. BALDEV GOLDMAN M.D. [id number]
--- NOTE | 2018-03-25 16:16 | CON.CARD ---
Consult Consult Specialty:: Cardiology Referred by:: Dr. Long Reason for Consultation:: tachycardia - History of Present Illness Chief Complaint: sob History of Present Illness: Pt seen and evaluated with resident. Agree with assessment and plan. 67 year old male with a PMHx of Cerebral palsy, Polio with left hemiparesis, chronic suprapubic catheter (30+ years and changed once a month) who was sent from his adult daycare center by EMS after patient was complaining of shortness of breath. According to medical records, patient aide and sister report that he was complaining of acid reflux and cough with no sputum. Upon initial presentation in th ED, patient was found to have sepsis. Further workup revealed UTI and Pneumonia and is currently on Antibiotics Pt seen and examined today. He is awake and alert and has difficulty clearly communicating but can appropriately answer questions. Denies shortness of breath , chest pain, abdominal pain, chest pain, palpitations, nausea, vomiting. - History Source History Provided By: Patient, Medical Record Limitations to Obtaining History: No Limitations - Past Medical History Additional Medical History: Cerebral Palsy. Polio with Left hemiparesis - Past Surgical History Past Surgical History: Yes: Appendectomy - Alcohol/Substance Use Hx Alcohol Use: No History of Substance Use: reports: None - Smoking History Smoking history: Never smoked - Social History ADL: Support Services History of Recent Travel: No Home Medications - Allergies Allergies/Adverse Reactions: Allergies Allergy/AdvReac Type Severity Reaction Status Date / Time shrimp Allergy Unknown Hives Verified 03/25/18 03:12 - Home Medications Home Medications: Ambulatory Orders Atorvastatin Ca [Lipitor] 40 mg PO HS 03/24/18 Baclofen 20 mg PO TID 03/24/18 Multivitamin [One Daily] 1 each PO DAILY 03/24/18 Oxybutynin Chloride [Ditropan Xl] 10 mg PO DAILY 03/24/18 traZODone HCL [Trazodone HCl] 50 mg PO HS 03/24/18 Family Disease History - Family Disease History Family History: Unable to Obtain Review of Systems - Review of Systems Constitutional: reports: Weakness. denies: No Symptoms, Chills, Diaphoresis, Fever, Lethargy, Loss of Appetite, Malaise, Night Sweats, Unintentional Wgt. Loss, Other Eyes: denies: No Symptoms, Blind Spots, Blurred Vision, Double Vision, Eye Pain , Floaters, Photophobia, Recent Change in Vision, Other HENT: denies: No Symptoms, Difficult Swallowing, Ear Discharge, Ear Pain, Epistaxis, Gingival Bleeding, Hearing Loss, Mouth Swelling, Nasal Congestion, Ocular Prosthesis, Throat Pain, Toothache, Ringing in Ears, Other Neck: denies: No Symptoms, Decreased ROM, Lumps, Pain on Movement, Stiffness, Swollen Glands, Tenderness, Other Cardiovascular: reports: Shortness of Breath. denies: No Symptoms, Chest Pain, Edema, Palpitations, Other Respiratory: reports: SOB. denies: No Symptoms, Cough, Exercise Intolerance, Hemoptysis, Orthopnea, PND, Snoring, SOB on Exertion, Wheezing, Other Gastrointestinal: reports: Indigestion. denies: No Symptoms, Abdominal Pain, Bloating, Constipation, Diarrhea, Dysphagia, Melena, Nausea, Rectal Bleeding, Vomiting, Vomiting Blood, Other Genitourinary: denies: No Symptoms, Burning, Discharge, Dysuria, Flank Pain, Frequency, Hematuria, Incontinence, Lesions, Menses, Pain, Testicular Mass, Testicular Pain, Testicular Swelling, Urgency, Vaginal Bleeding, Other Breasts: denies: No Symptoms Reported, See HPI, Breast Implants, Discharge from Nipple, Lumps, Pain, Skin Changes, Other Musculoskeletal: denies: No Symptoms, Back Pain, Crepitus, Decreased ROM, Extremity Pain, Joint Pain, Joint Swelling, Muscle Pain, Muscle Cramps, Muscle Weakness, Other Integumentary: denies: No Symptoms, Blister, Bruising, Change in Color, Eczema, Erythema, Incision, Lesions, Lump, Pallor, Pruritis, Rash, Wound, Other Neurological: reports: Pre-Existing Deficit. denies: No Symptoms, Change in LOC , Change in Speech, Confusion, Dizziness, Headache, Incoordination, Numbness, Parasthesia, Seizure, Syncope, Tremors, Unsteady Gait, Weakness, Other Endocrine: denies: No Symptoms, Excessive Sweating, Flushing, Increased Hunger, Increased Thirst, Intolerance to Cold, Intolerance to Heat, Unexplained Weight Gain, Unexplained Weight Loss, Other Hematology/Lymphatic: denies: No Symptoms, Easily Bruised, Excessive Bleeding, Swollen Glands, Other Psychiatric: denies: No Symptoms, Altered Sleep Pattern, Anxiety, Depression, Hallucinations, Panic, Paranoia, Suicidal, Other - Risk Factors Known Risk Factors: Yes: Physical Inactivity Vital Signs: Vital Signs Temperature 97.4 F L 03/25/18 14:10 Pulse Rate 78 03/25/18 14:10 Respiratory Rate 18 03/25/18 14:10 Blood Pressure 124/67 03/25/18 14:10 O2 Sat by Pulse Oximetry (%) 94 L 03/25/18 14:18 Constitutional: Yes: No Distress, Calm Eyes: Yes: Conjunctiva Clear, EOM Intact, PERRL HENT: Yes: Atraumatic, Normocephalic Neck: Yes: Supple, Trachea Midline Respiratory: Yes: Regular, Diminished. No: Rales, Rhonchi, SOB, Wheezes Gastrointestinal: Yes: Normal Bowel Sounds, Soft. No: Distention, Tenderness Cardiovascular: Yes: Regular Rate and Rhythm. No: Bradycardia, Tachycardia, Pulse Irregular, Gallop, Rub, Varicosities JVD: No Carotid Bruit: No Heart Sounds: Yes: S1, S2. No: Split S2, S3, S4, Clicks, Gallop, Rub, Bruit Murmur: Yes: Systolic Murmur. No: Diastolic Murmur Edema: No Peripheral Pulses WNL: Yes Neurological: Yes: Alert, Pre-Existing Deficit Psychiatric: Yes: Alert - Other Data Labs, Other Data: CBC, BMP 03/25/18 07:06 03/25/18 07:06 INR, PTT INR 1.18 (0.83-1.09) H 03/24/18 16:05 Troponin, BNP 03/24/18 03/24/18 03/24/18 16:05 16:05 20:20 Troponin I < 0.02 < 0.02 B-Natriuretic Peptide 447.57 H Troponin, BNP 03/24/18 03/24/18 03/24/18 16:05 16:05 20:20 Troponin I < 0.02 < 0.02 B-Natriuretic Peptide 447.57 H ekg-nsr, no sig abnl Imaging - Results Chest X-ray: Report Reviewed, Image Reviewed EKG: Report Reviewed, Image Reviewed Other: Report Reviewed, Image Reviewed (tele-nsr, sinus tach, no sig arrhythmias ) Assessment/Plan Patient is a 67 year old male with a PMHx of cerebral palsy who was sent by EMS for shortness of breath. Patient was found to be hypoxic, tachycardic and further workup revealed UTI and Pneumonia. Patient admitted to telemetry for further monitoring and management. Tachycardia-Sinus tach, Likely secondary to Sepsis -no arrhythmias on tele -Cardiac enzymes wnl -Continue treatment of infection as per ID and primary team Acute hypoxic hypercapnic respiratory failure -Likely secondary to Pneumonia -pulm following HLD -Continue Atorvastatin 40mg daily HS Ok to dc tele No additional cardiac work up needed at this time. Please call with any additional questions.
--- NOTE | 2018-03-25 18:00 | CON.NEURO ---
Consult - Past Medical History Additional Medical History: Cerebral Palsy. Polio with Left hemiparesis - Past Surgical History Past Surgical History: Yes: Appendectomy - Alcohol/Substance Use Hx Alcohol Use: No History of Substance Use: reports: None - Smoking History Smoking history: Never smoked - Social History ADL: Support Services History of Recent Travel: No Home Medications - Allergies Allergies/Adverse Reactions: Allergies Allergy/AdvReac Type Severity Reaction Status Date / Time shrimp Allergy Unknown Hives Verified 03/25/18 03:12 - Home Medications Home Medications: Ambulatory Orders Atorvastatin Ca [Lipitor] 40 mg PO HS 03/24/18 Baclofen 20 mg PO TID 03/24/18 Multivitamin [One Daily] 1 each PO DAILY 03/24/18 Oxybutynin Chloride [Ditropan Xl] 10 mg PO DAILY 03/24/18 traZODone HCL [Trazodone HCl] 50 mg PO HS 03/24/18 Physical Exam-Neuro Vital Signs: Vital Signs Temperature 97.4 F L 03/25/18 14:10 Pulse Rate 78 03/25/18 14:10 Respiratory Rate 18 03/25/18 14:10 Blood Pressure 124/67 03/25/18 14:10 O2 Sat by Pulse Oximetry (%) 94 L 03/25/18 14:18 Labs: CBC, BMP 03/25/18 07:06 03/25/18 07:06 INR, PTT INR 1.18 (0.83-1.09) H 03/24/18 16:05 Assessment/Plan CC. History of Cerebral Palsy HPI 67 year old male history of cerebral palsy, with left sided hemparesis, and Polio. Patient came to hospital for SOB, and bein treated for pneumonia. Patient has afebrile for last 2 days. He is being seen by Dr Leon as outpatient. He is on baclofen and it was stopped as sedation was concern. He denies any significant worsening of stiffness or pain after stopping baclofen. He was given abx, bronchodilator during hospital stay. He has been improving, and spoke to staff. PMH Cerebral palsy (w/ chronic suprapubic catheter x30yrs) Polio w/ L hemiparesis PSH: Chronic suprapubic catheter appendectomy x20 years ago FH Mother- Alzheimer's, heart disease, DM, HTN, HLD Maternal Aunt- Breast cx SH,ROS reviewed in chart Allergies No Known Allergies Allergy (Verified 03/24/18 16:09) HOME MEDICATIONS: Medication Instructions Recorded Atorvastatin Ca [Lipitor] 40 mg PO HS 03/24/18 Baclofen 20 mg PO TID 03/24/18 Multivitamin [One Daily] 1 each PO DAILY 03/24/18 Oxybutynin Chloride [Ditropan Xl] 10 mg PO DAILY 03/24/18 traZODone HCL [Trazodone HCl] 50 mg PO HS 03/24/18 Neurological Examination ALert and oriented x 1, he was able to tell me his name in dysarthric speech eomi, pupils reactive He is able to move both upper and lower extermity there is increase spasticity in both upper and lower extermity right sided has more range of motion and mobility sensation is noraml No brain imaging available Assessment- Chronic static encephalopathy ( cerebral palsy), there is no acute Neurological issue Plan- There is no need for brain imaging at this time - his home medication can be resume at the time of discharge - continue to treatment pneumonia as per primary and ID -Thanking you for consult , Patient can follow up with Dr leon as outpatient Thanking you so much Justin Tabares MD
--- NOTE | 2018-03-25 20:10 | EKG ---
Test Reason : Blood Pressure : / mmHG Vent. Rate : 122 BPM Atrial Rate : 122 BPM P-R Int : 124 ms QRS Dur : 086 ms QT Int : 288 ms P-R-T Axes : 024 060 028 degrees QTc Int : 410 ms SINUS TACHYCARDIA WITH PREMATURE ATRIAL COMPLEXES OTHERWISE NORMAL ECG NO PREVIOUS ECGS AVAILABLE Confirmed by MICK DE LA ROSA, JAMES ([id number]) on 03/25/2018 8:10:22 PM Referred By: Confirmed By:JAMES BARTON MD
--- NOTE | 2018-03-25 20:21 | EKG ---
Test Reason : Blood Pressure : / mmHG Vent. Rate : 078 BPM Atrial Rate : 078 BPM P-R Int : 136 ms QRS Dur : 094 ms QT Int : 374 ms P-R-T Axes : 068 074 018 degrees QTc Int : 426 ms NORMAL SINUS RHYTHM NORMAL ECG WHEN COMPARED WITH ECG OF 24-MAR-2018 16:21, PREMATURE ATRIAL COMPLEXES ARE NO LONGER PRESENT VENT. RATE HAS DECREASED BY 44 BPM Confirmed by MICK DE LA ROSA, JAMES ([id number]) on 03/25/2018 8:21:07 PM Referred By: HEIDY Confirmed By:JAMES BARTON MD
--- NOTE | 2018-03-25 21:18 | ECHO ---
Name: CARIDAD HEREDIA Exam:Adult Echocardiogram Study Date: 03/25/2018 10:55 AM Age: 67 yrs Reason For Study: ARRHYTHMIA Height: 65 in Weight: 135 lb BSA: 1.7 m2 MMode/2D Measurements & Calculations IVSd: 0.99 cm Ao root diam: 2.9 cm LVIDd: 4.1 cm LA dimension: 3.5 cm LVIDs: 2.7 cm LVPWd: 0.75 cm EDV(Teich): 72.1 ml ESV(Teich): 27.7 ml Doppler Measurements & Calculations MV E max emerson: 69.6 cm/sec MR max emerson: 248.2 cm/sec MV A max emerson: 72.1 cm/sec MR max P.7 mmHg MV E/A: 0.97 MV dec time: 0.15 sec Med Peak E' Emerson: 7.9 cm/sec Med E/e': 8.8 Lat Peak E' Emerson: 11.4 cm/sec Lat E/e': 6.1 Left Ventricle The left ventricular size, thickness and function are normal. The left ventricular ejection fraction is normal. Ejection Fraction = 55-60%. Grade I diastolic dysfunction, (abnormal relaxation pattern). No regional wall motion abnormalities noted. Right Ventricle The right ventricular systolic function is normal. Atria Normal left and right atrial size and function. Mitral Valve There is mild mitral valve thickening. There is trace to mild mitral regurgitation. Great Vessels The aortic root is normal size. Pericardium/Pleura There is no pericardial effusion. Interpretation Summary The left ventricular size, thickness and function are normal Grade I diastolic dysfunction, (abnormal relaxation pattern). Ejection Fraction = 55-60%. No regional wall motion abnormalities noted. The right ventricular systolic function is normal. Normal left and right atrial size and function. There is mild mitral valve thickening. There is trace to mild mitral regurgitation. The aortic root is normal size. There is no pericardial effusion. Jasvir Gillespie MD 03/25/2018 09:17 PM
[2018-03-25] MEDS: ATORVASTATIN CA 40 MG TABLET (FP) PO SCH (22:23)
[2018-03-26] MEDS: ALBUTEROL SO4 2.5/IPRATROPIUM 0.5 INH SOL 3 ML VIAL.NEB. NEB SCH ×7 (00:35→23:19)
[2018-03-26] MEDS ORDERED: PIPERACILLIN/TAZOBACTAM 4.5 GM VIAL IVPB ONE ×3 (01:11→17:56)
[2018-03-26] MEDS ORDERED: DEXTROSE 5%-WATER 100 ML IVPB ONE ×3 (01:12→17:56)
[2018-03-26] MEDS: PIPERACILLIN/TAZOB 4.5 GM 4.5 GM in DEXTROSE 5%-WATER 100 ML IVPB SCH ×3 (01:30→18:06)
[2018-03-26] MEDS: methylPREDNISolone NA SUCC 125 MG/2 ML VIAL IVPUSH SCH (03:00)
[2018-03-26] MEDS: HEPARIN NA (PORCINE) 5,000 UNITS/ML 1ML VIAL SQ SCH ×3 (06:00→23:06)
[2018-03-26 07:42] LABS: BASO % 0.3 % (0-2.0); HEMATOCRIT 38.9 % (35.4-49); HEMOGLOBIN 12.5 GM/dL (11.7-16.9); LYMPH % 2.4 % (8-40); MCH 28.9 pg (25.7-33.7); MCHC 32.2 g/dl (32.0-35.9); MEAN CELL VOLUME 89.7 fl (80-96); MEAN PLT VOLUME 9.3 fl (7.5-11.1); MONO % 3.3 % (3.8-10.2); PLATELET COUNT 115 K/MM3 (134-434); RBC 4.33 M/mm3 (4.00-5.60); RDW 15.9 % (11.9-15.9); WHITE BLOOD COUNT 13.3 K/mm3 (4.0-10.0)
--- NOTE | 2018-03-26 08:25 | PN ---
Progress Note, Physician History of Present Illness: 67M w/ pmhx of cerebral palsy (with chronic suprapubic catheter x30 years), Polio with L hemiparesis presented in the ED with shortness of breath admitted for sepsis 2/2 pneumonia and UTI. - Current Medication List Current Medications: Active Medications Albuterol Sulfate (Ventolin Hfa Inhaler -) 2 puff IH Q4H PRN PRN Reason: SHORT OF BREATH/WHEEZING Last Admin: 03/24/18 19:51 Dose: 2 puff Albuterol/Ipratropium (Duoneb -) 1 amp NEB Q4H [facility] Last Admin: 03/26/18 05:19 Dose: 1 amp Atorvastatin Calcium (Lipitor -) 40 mg PO HS [facility] Last Admin: 03/25/18 22:23 Dose: 40 mg Heparin Sodium (Porcine) (Heparin -) 5,000 unit SQ TID [facility] Last Admin: 03/26/18 06:00 Dose: 5,000 unit Piperacillin Sod/Tazobactam (Sod 4.5 gm/ Dextrose) 100 mls @ 200 mls/hr IVPB Q8H-IV [facility]; Protocol Last Admin: 03/26/18 01:30 Dose: 200 mls/hr Methylprednisolone Sodium Succinate (Solu-Medrol -) 60 mg IVPUSH Q8H-IV [facility] Last Admin: 03/26/18 03:00 Dose: 60 mg Pantoprazole Sodium (Protonix Iv) 40 mg IVPUSH DAILY [facility] Last Admin: 03/25/18 09:58 Dose: 40 mg Solifenacin (Vesicare -) 5 mg PO DAILY [facility] Last Admin: 03/25/18 09:59 Dose: 5 mg - Objective Vital Signs: Vital Signs Temperature 98.5 F 03/26/18 01:00 Pulse Rate 84 03/26/18 05:00 Respiratory Rate 20 03/26/18 05:00 Blood Pressure 107/59 03/26/18 05:00 O2 Sat by Pulse Oximetry (%) 95 03/25/18 21:00 Cardiovascular: Yes: S1, S2 Respiratory: Yes: Diminished Gastrointestinal: Yes: Normal Bowel Sounds, Soft Labs: CBC, BMP 03/26/18 07:00 03/25/18 07:06 INR, PTT INR 1.18 (0.83-1.09) H 03/24/18 16:05 Problem List - Problems (1) Sepsis Assessment/Plan: - 2/2 CAP and UTI, r/o aspiration pna; -Pt has cloudy urine seen in reyna bag and attended a alliance party around others who were also sick. -Zosyn 4.5 gm IVPB Q6H -f/u blood, sputum, urine cx -f/u Legionella, S PNA Ag, RSV 03/24/18 16:10 Blood - Peripheral Venous Blood Culture - Preliminary NO GROWTH OBTAINED AFTER 24 HOURS, INCUBATION TO CONTINUE FOR 4 DAYS. 03/24/18 16:05 Blood - Peripheral Venous Blood Culture - Preliminary NO GROWTH OBTAINED AFTER 24 HOURS, INCUBATION TO CONTINUE FOR 4 DAYS. 03/24/18 23:30 Urine For Antigen Detection Legionella Antigen - Final 03/24/18 23:30 Urine For Antigen Detection Streptococcus pneumoniae Antigen (M - Final -f/u lactate Laboratory Tests 03/24/18 03/24/18 03/25/18 16:05 16:05 07:06 WBC 18.4 H 11.9 H Lactic Acid 1.5 03/26/18 07:00 WBC 13.3 H Lactic Acid -f/u ID consult Code(s): A41.9 - SEPSIS, UNSPECIFIED ORGANISM (2) Cerebral palsy Assessment/Plan: . 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 given pt's current clinical state -Neuro noted -hold Trazodone 50 mg PO HS due to SMOKE CONTROL SUPERVISOR depression given pt's current clinical state Code(s): G80.9 - CEREBRAL PALSY, UNSPECIFIED (3) Respiratory failure Assessment/Plan: # Acute hypoxic hypercapnic respiratory failure -currently on nc -Improved -f/u pulm consult -f/u ABG -Duonebs 2.5 1 amp neg Q4H -Solumedrol 60 mg IVP I2I--yvlkm -Ventolin inhaler 2 puff IH Q4H PRN Code(s): J96.90 - RESPIRATORY FAILURE, UNSP, UNSP W HYPOXIA OR HYPERCAPNIA (4) Tachycardia Assessment/Plan: -Improved - 2/2 sepsis, r/o arrhythmia -f/u cardio consult noted Code(s): R00.0 - TACHYCARDIA, UNSPECIFIED (5) Overactive bladder Assessment/Plan: Pt has been on chronic reyna x30 years due to urinary retention gets changed [id number] Code(s): N32.81 - OVERACTIVE BLADDER
[2018-03-26] MEDS: PANTOPRAZOLE SODIUM 40 MG VIAL IVPUSH SCH (09:25)
[2018-03-26] MEDS: SOLIFENACIN SUCCINATE 5 MG TAB (FP) PO SCH (09:26)
[2018-03-26] MEDS: methylPREDNISolone NA SUCC 40 MG/1 ML VIAL IVPUSH SCH ×2 (09:32→23:06)
--- NOTE | 2018-03-26 10:12 | PN ---
Progress Note, Physician History of Present Illness: PULMONARY ALERT,COMFORTABLE ON NASAL CANNULA,-RESP DISTRESS - Current Medication List Current Medications: Active Medications Albuterol Sulfate (Ventolin Hfa Inhaler -) 2 puff IH Q4H PRN PRN Reason: SHORT OF BREATH/WHEEZING Last Admin: 03/24/18 19:51 Dose: 2 puff Albuterol/Ipratropium (Duoneb -) 1 amp NEB Q4H [facility] Last Admin: 03/26/18 09:03 Dose: Not Given Atorvastatin Calcium (Lipitor -) 40 mg PO HS [facility] Last Admin: 03/25/18 22:23 Dose: 40 mg Heparin Sodium (Porcine) (Heparin -) 5,000 unit SQ TID [facility] Last Admin: 03/26/18 06:00 Dose: 5,000 unit Piperacillin Sod/Tazobactam (Sod 4.5 gm/ Dextrose) 100 mls @ 200 mls/hr IVPB Q8H-IV [facility]; Protocol Last Admin: 03/26/18 09:25 Dose: 200 mls/hr Methylprednisolone Sodium Succinate (Solu-Medrol -) 40 mg IVPUSH BID [facility] Last Admin: 03/26/18 09:32 Dose: 40 mg Pantoprazole Sodium (Protonix Iv) 40 mg IVPUSH DAILY [facility] Last Admin: 03/26/18 09:25 Dose: 40 mg Solifenacin (Vesicare -) 5 mg PO DAILY [facility] Last Admin: 03/26/18 09:26 Dose: 5 mg - Objective Vital Signs: Vital Signs Temperature 98.5 F 03/26/18 01:00 Pulse Rate 84 03/26/18 05:00 Respiratory Rate 20 03/26/18 05:00 Blood Pressure 107/59 03/26/18 05:00 O2 Sat by Pulse Oximetry (%) 96 03/26/18 08:34 Constitutional: Yes: Well Nourished, Calm Eyes: Yes: WNL HENT: Yes: WNL Neck: Yes: WNL Cardiovascular: Yes: Regular Rate and Rhythm, S1, S2 Respiratory: Yes: Wheezes (FEW WHEEZES) Gastrointestinal: Yes: Normal Bowel Sounds, Soft Extremities: Yes: WNL Edema: No Labs: CBC, BMP 03/26/18 07:00 INR, PTT Problem List - Problems (1) Cerebral palsy Code(s): G80.9 - CEREBRAL PALSY, UNSPECIFIED (2) Pneumonia Code(s): J18.9 - PNEUMONIA, UNSPECIFIED ORGANISM (3) Respiratory failure with hypoxia and hypercapnia Code(s): J96.91 - RESPIRATORY FAILURE, UNSPECIFIED WITH HYPOXIA; J96.92 - RESPIRATORY FAILURE, UNSPECIFIED WITH HYPERCAPNIA (4) Sepsis Code(s): A41.9 - SEPSIS, UNSPECIFIED ORGANISM (5) Suprapubic catheter Code(s): Z93.59 - OTHER CYSTOSTOMY STATUS (6) Tachycardia Code(s): R00.0 - TACHYCARDIA, UNSPECIFIED Assessment/Plan IMP ACUTE HYPOXEMIC RESPIRATORY FAILURE ACUTE ON CHRONIC HYPERCAPNEIC RESPIRATORY FAILURE SEPSIS LIKELY PNEUMONIA ?UTI H/O CP H/O POLIO PLAN IV ABX PER ID INHALED BRONCHODILATORS NIPPV NEEDED O2 TO MAINTAIN O2 SAT 90% OR GREATER F/U CHEST X-RAYS CHEST CT ABG DR MUNOZ Problem List - Problems (1) Cerebral palsy Code(s): G80.9 - CEREBRAL PALSY, UNSPECIFIED (2) Pneumonia Code(s): J18.9 - PNEUMONIA, UNSPECIFIED ORGANISM (3) Respiratory failure with hypoxia and hypercapnia Code(s): J96.91 - RESPIRATORY FAILURE, UNSPECIFIED WITH HYPOXIA; J96.92 - RESPIRATORY FAILURE, UNSPECIFIED WITH HYPERCAPNIA (4) Sepsis Code(s): A41.9 - SEPSIS, UNSPECIFIED ORGANISM (5) Suprapubic catheter Code(s): Z93.59 - OTHER CYSTOSTOMY STATUS (6) Tachycardia Code(s): R00.0 - TACHYCARDIA, UNSPECIFIED
[2018-03-26 11:33] LABS: SMUDGE CELLS 1+
[2018-03-26 11:35] LABS: PLATELET ESTIMATE SLT DECREASE
[2018-03-26] MEDS: ATORVASTATIN CA 40 MG TABLET (FP) PO SCH (23:06)
[2018-03-27] MEDS: PIPERACILLIN/TAZOB 4.5 GM 4.5 GM in DEXTROSE 5%-WATER 100 ML IVPB SCH ×3 (01:00→22:04)
[2018-03-27] MEDS ORDERED: PIPERACILLIN/TAZOBACTAM 4.5 GM VIAL IVPB ONE ×3 (01:10→21:13)
[2018-03-27] MEDS ORDERED: DEXTROSE 5%-WATER 100 ML IVPB ONE ×3 (01:10→21:14)
[2018-03-27] MEDS: ALBUTEROL SO4 2.5/IPRATROPIUM 0.5 INH SOL 3 ML VIAL.NEB. NEB SCH ×5 (04:30→20:46)
[2018-03-27] MEDS: HEPARIN NA (PORCINE) 5,000 UNITS/ML 1ML VIAL SQ SCH ×3 (06:58→22:05)
[2018-03-27 08:01] LABS: BASO % 0.1 % (0-2.0); HEMATOCRIT 39.5 % (35.4-49); LYMPH % 3.8 % (8-40); MCH 29.4 pg (25.7-33.7); MCHC 32.9 g/dl (32.0-35.9); MEAN CELL VOLUME 89.2 fl (80-96); MEAN PLT VOLUME 9.1 fl (7.5-11.1); MONO % 7.3 % (3.8-10.2); NEUT % 88.8 % (42.8-82.8); PLATELET COUNT 141 K/MM3 (134-434); RBC 4.43 M/mm3 (4.00-5.60); RDW 16.1 % (11.9-15.9); WHITE BLOOD COUNT 9.6 K/mm3 (4.0-10.0)
[2018-03-27 08:42] LABS: ALBUMIN 2.6 g/dl (3.4-5.0); ANION GAP 6 MMOL/L (8-16); BLOOD UREA NITROGEN 31 mg/dL (7-18); CALCIUM 8.6 mg/dL (8.5-10.1); CHLORIDE 97 mmol/L (98-107); CO2 39 mmol/L (21-32); CREATININE 0.7 mg/dL (0.7-1.3); GLUCOSE,RANDOM 118 mg/dL (74-106); POTASSIUM 5.2 mmol/L (3.5-5.1); SGOT/AST 24 U/L (15-37); SGPT/ALT 31 U/L (12-78); SODIUM 142 mmol/L (136-145)
[2018-03-27 08:43] LABS: ALK PHOS 76 U/L (45-117); BILIRUBIN,TOTAL 0.5 mg/dL (0.2-1.0)
[2018-03-27] MEDS: predniSONE 20 MG TABLET (UD) PO SCH ×2 (09:58→22:02)
[2018-03-27] MEDS: PANTOPRAZOLE 40 MG TABLET (FP) PO SCH (09:58)
[2018-03-27] MEDS: SOLIFENACIN SUCCINATE 5 MG TAB (FP) PO SCH (09:59)
--- NOTE | 2018-03-27 10:53 | PN ---
Progress Note, Physician History of Present Illness: PULMONARY ALERT,COMFORTABLE,-RESP DISTRESS ON NASAL O2 - Current Medication List Current Medications: Active Medications Albuterol Sulfate (Ventolin Hfa Inhaler -) 2 puff IH Q4H PRN PRN Reason: SHORT OF BREATH/WHEEZING Last Admin: 03/24/18 19:51 Dose: 2 puff Albuterol/Ipratropium (Duoneb -) 1 amp NEB Q4H [facility] Last Admin: 03/27/18 07:45 Dose: 1 amp Atorvastatin Calcium (Lipitor -) 40 mg PO HS [facility] Last Admin: 03/26/18 23:06 Dose: 40 mg Heparin Sodium (Porcine) (Heparin -) 5,000 unit SQ TID [facility] Last Admin: 03/27/18 06:58 Dose: 5,000 unit Piperacillin Sod/Tazobactam (Sod 4.5 gm/ Dextrose) 100 mls @ 200 mls/hr IVPB Q8H-IV [facility]; Protocol Last Admin: 03/27/18 09:58 Dose: 200 mls/hr Pantoprazole Sodium (Protonix -) 40 mg PO DAILY [facility] Last Admin: 03/27/18 09:58 Dose: 40 mg Prednisone (Deltasone -) 30 mg PO BID [facility] Last Admin: 03/27/18 09:58 Dose: 30 mg Solifenacin (Vesicare -) 5 mg PO DAILY [facility] Last Admin: 03/27/18 09:59 Dose: 5 mg - Objective Vital Signs: Vital Signs Temperature 97 F L 03/27/18 01:00 Pulse Rate 101 H 03/27/18 05:00 Respiratory Rate 20 03/27/18 05:00 Blood Pressure 127/92 03/27/18 05:00 O2 Sat by Pulse Oximetry (%) 96 03/27/18 01:59 Constitutional: Yes: Well Nourished, Calm Eyes: Yes: WNL HENT: Yes: WNL Neck: Yes: WNL Cardiovascular: Yes: Regular Rate and Rhythm, S1, S2 Respiratory: Yes: Diminished Gastrointestinal: Yes: Normal Bowel Sounds, Soft Extremities: Yes: WNL Edema: No Labs: CBC, BMP 03/27/18 06:15 03/27/18 06:15 INR, PTT INR 1.18 (0.83-1.09) H 03/24/18 16:05 - ....Imaging Chest X-ray: Report Reviewed, Image Reviewed (NO INFILTRATES) Problem List - Problems (1) Cerebral palsy Code(s): G80.9 - CEREBRAL PALSY, UNSPECIFIED (2) Pneumonia Code(s): J18.9 - PNEUMONIA, UNSPECIFIED ORGANISM (3) Respiratory failure with hypoxia and hypercapnia Code(s): J96.91 - RESPIRATORY FAILURE, UNSPECIFIED WITH HYPOXIA; J96.92 - RESPIRATORY FAILURE, UNSPECIFIED WITH HYPERCAPNIA (4) Sepsis Code(s): A41.9 - SEPSIS, UNSPECIFIED ORGANISM (5) Suprapubic catheter Code(s): Z93.59 - OTHER CYSTOSTOMY STATUS (6) Tachycardia Code(s): R00.0 - TACHYCARDIA, UNSPECIFIED Assessment/Plan IMP ACUTE HYPOXEMIC RESPIRATORY FAILURE IMPROVING ACUTE ON CHRONIC HYPERCAPNEIC RESPIRATORY FAILURE SEPSIS LIKELY PNEUMONIA ?UTI H/O CP H/O POLIO PLAN IV ABX PER ID INHALED BRONCHODILATORS NIPPV NEEDED O2 TO MAINTAIN O2 SAT 90% OR GREATER ABG DR MUNOZ Problem List - Problems (1) Cerebral palsy Code(s): G80.9 - CEREBRAL PALSY, UNSPECIFIED (2) Pneumonia Code(s): J18.9 - PNEUMONIA, UNSPECIFIED ORGANISM (3) Respiratory failure with hypoxia and hypercapnia Code(s): J96.91 - RESPIRATORY FAILURE, UNSPECIFIED WITH HYPOXIA; J96.92 - RESPIRATORY FAILURE, UNSPECIFIED WITH HYPERCAPNIA (4) Sepsis Code(s): A41.9 - SEPSIS, UNSPECIFIED ORGANISM (5) Suprapubic catheter Code(s): Z93.59 - OTHER CYSTOSTOMY STATUS (6) Tachycardia Code(s): R00.0 - TACHYCARDIA, UNSPECIFIED
--- NOTE | 2018-03-27 14:11 | DS ---
Physical Examination Vital Signs: Vital Signs Temperature 98 F 03/27/18 14:09 Pulse Rate 108 H 03/27/18 14:09 Respiratory Rate 20 03/27/18 14:09 Blood Pressure 129/84 03/27/18 14:09 O2 Sat by Pulse Oximetry (%) 96 03/27/18 09:00 Cardiovascular: Yes: S1, S2 Respiratory: Yes: Regular, CTA Bilaterally Gastrointestinal: Yes: Normal Bowel Sounds, Soft. No: Tenderness Labs: CBC, BMP 03/27/18 06:15 03/27/18 06:15 Discharge Summary Reason For Visit: SYSTEMIC INFLAMMATORY RESPONSE SYNDROME Current Active Problems Cerebral palsy (Acute) Overactive bladder (Acute) Pneumonia (Acute) Respiratory failure (Acute) Respiratory failure with hypoxia and hypercapnia (Acute) Sepsis (Acute) Suprapubic catheter (Acute) Tachycardia (Acute) UTI (urinary tract infection) (Acute) Hospital Course: HISTORY OF PRESENT ILLNESS: 67M w/ pmhx of cerebral palsy (with chronic suprapubic catheter x30 years), polio with L hemiparesis presented in the ED with shortness of breath. According to pt's sister and home health aide, pt was about to go home after attending a alliance party at his adult daycare center when he started complaining to the nurse at the center that he was having trouble breathing. The nurse at the adult daycare center contacted pt's family around 2:50pm and called EMS to bring pt to the hospital. Pt denies any symptoms earlier that day. Denies chest pain, headaches/dizziness, nausea/vomiting, abdominal pain, urinary/bowel symptoms, weakness. He does complain of acid reflux yesterday after eating spaghetti and took Tums which relieved his symptoms. During the past week, pt complained of a mild cough with no productive sputum. Pt also admits that he has been exposed to many people at his daycare center with a cold. Pt has a breathing machine at home for albuterol, but denies using it within the past week. Upon initial presentation, pt was found to be febrile at 102, tachycardic at 135 , with dry cough and wheezes. Of note, pt was recently admitted to [facility] for PNA and was discharged on antibiotics. Additionally, pt's suprapubic catheter is also changed once a month and was recently changed yesterday (03/23) by Dr. Coffman. ER course was notable for: (1) CXR, blood and urine cx pending (2) In the ED, pt given Vanc/Zosyn, Solumedrol, Tylenol (3) U/A: 2+ Pro, 1+ blood, 3+ LE Recent Travel: Denies PAST MEDICAL HISTORY: Cerebral palsy (w/ chronic suprapubic catheter x30yrs) Polio w/ L hemiparesis PAST SURGICAL HISTORY: Chronic suprapubic catheter appendectomy x20 years ago - Problems (1) Sepsis Assessment/Plan: - 2/2 CAP and UTI, r/o aspiration pna; -Pt has cloudy urine seen in reyna bag and attended a alliance party around others who were also sick. -Zosyn 4.5 gm IVPB N0F--[facility] follow up -f/u blood, sputum, urine cx -f/u Legionella, S PNA Ag, RSV Microbiology 03/24/18 16:10 Blood Culture - Preliminary Blood - Peripheral Venous NO GROWTH OBTAINED AFTER 48 HOURS, INCUBATION TO CONTINUE FOR 3 DAYS. 03/24/18 16:05 Blood Culture - Preliminary Blood - Peripheral Venous NO GROWTH OBTAINED AFTER 48 HOURS, INCUBATION TO CONTINUE FOR 3 DAYS. 03/25/18 12:30 MRSA Screen - Final Nares - Right Nares NO MRSA ISOLATED 03/25/18 12:30 MRSA Screen - Final Nares - Left Nares NO MRSA ISOLATED -f/u lactate Laboratory Tests 03/24/18 03/24/18 03/25/18 16:05 16:05 07:06 WBC 18.4 H 11.9 H Lactic Acid 1.5 03/26/18 07:00 WBC 13.3 H Lactic Acid -f/u ID consult Code(s): A41.9 - SEPSIS, UNSPECIFIED ORGANISM (2) Cerebral palsy Assessment/Plan: . 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 depression given pt's current clinical state Code(s): G80.9 - CEREBRAL PALSY, UNSPECIFIED (3) Respiratory failure Assessment/Plan: # Acute hypoxic hypercapnic respiratory failure -currently on nc -Improved -f/u pulm consult -f/u ABG -Duonebs 2.5 1 amp neg Q4H -Solumedrol 60 mg IVP Z0F--fzkuc--ek po prednisone -Ventolin inhaler 2 puff IH Q4H PRN Code(s): J96.90 - RESPIRATORY FAILURE, UNSP, UNSP W HYPOXIA OR HYPERCAPNIA (4) Tachycardia Assessment/Plan: -Improved - 2/2 sepsis, r/o arrhythmia -f/u cardio consult noted Code(s): R00.0 - TACHYCARDIA, UNSPECIFIED (5) Overactive bladder Assessment/Plan: Pt has been on chronic reyna x30 years due to urinary retention gets changed [id number] Code(s): N32.81 - OVERACTIVE BLADDER - Instructions - Home Medications Comprehensive Discharge Medication List: Ambulatory Orders Atorvastatin Ca [Lipitor] 40 mg PO HS 03/24/18 Baclofen 20 mg PO TID 03/24/18 Multivitamin [One Daily] 1 each PO DAILY 03/24/18 Oxybutynin Chloride [Ditropan Xl] 10 mg PO DAILY 03/24/18 traZODone HCL [Trazodone HCl] 50 mg PO HS 03/24/18
[2018-03-27 14:18] LABS: ARTERIAL BLD GAS O2 SATURATION 96.9 % (90-98.9); ARTERIAL BLOOD GAS BASE EXCESS 12.2 meq/l (-2-2); ARTERIAL BLOOD GAS PO2 86.9 mmHg (80-100)
[2018-03-27 14:20] LABS: ALLENS TEST POSITIVE
[2018-03-27 14:23] LABS: ARTERIAL BLOOD GAS PCO2 66.3 mmHg (35-45)
--- NOTE | 2018-03-27 17:12 | PN ---
Progress Note (short form) - Note Progress Note: currently on bipap alert Vital Signs Period Temp Pulse Resp BP Sys/Gates Pulse Ox Last 24 Hr 97 F-99.6 F 86-108 18-20 115-129/65-92 95-98 cor-rrr lungs decresed bs at bases abd soft,nt ext no edema ct scan noted- elevated right hemidiaphragm/copd, atelectasis CBC, BMP 03/27/18 06:15 03/27/18 06:15 Microbiology 03/24/18 16:10 Blood - Peripheral Venous Blood Culture - Preliminary NO GROWTH OBTAINED AFTER 72 HOURS, INCUBATION TO CONTINUE FOR 2 DAYS. 03/24/18 16:05 Blood - Peripheral Venous Blood Culture - Preliminary NO GROWTH OBTAINED AFTER 72 HOURS, INCUBATION TO CONTINUE FOR 2 DAYS. 03/25/18 12:30 Nares - Right Nares MRSA Screen - Final NO MRSA ISOLATED 03/25/18 12:30 Nares - Left Nares MRSA Screen - Final NO MRSA ISOLATED 03/24/18 23:30 Urine For Antigen Detection Legionella Antigen - Final 03/24/18 23:30 Urine For Antigen Detection Streptococcus pneumoniae Antigen (M - Final a/p fever/leukocytosis /thrombocytopenia-resolved pyuria with chronic SPT (just changed) hypoxic, hypercapneic resp failure cannot r/o pneumonia/uti CP Post polio continue zosyn day #3- improving consider change to po augmentin when ready for discharge-total treatment course 7 days please call back if needed Problem List - Problems (1) Respiratory failure with hypoxia and hypercapnia Code(s): J96.91 - RESPIRATORY FAILURE, UNSPECIFIED WITH HYPOXIA; J96.92 - RESPIRATORY FAILURE, UNSPECIFIED WITH HYPERCAPNIA (2) Pneumonia Code(s): J18.9 - PNEUMONIA, UNSPECIFIED ORGANISM (3) UTI (urinary tract infection) Code(s): N39.0 - URINARY TRACT INFECTION, SITE NOT SPECIFIED (4) Cerebral palsy Code(s): G80.9 - CEREBRAL PALSY, UNSPECIFIED (5) Suprapubic catheter Code(s): Z93.59 - OTHER CYSTOSTOMY STATUS
[2018-03-27] MEDS: ATORVASTATIN CA 40 MG TABLET (FP) PO SCH (22:02)
[2018-03-28] MEDS: ALBUTEROL SO4 2.5/IPRATROPIUM 0.5 INH SOL 3 ML VIAL.NEB. NEB SCH ×7 (00:17→23:01)
[2018-03-28] MEDS: PIPERACILLIN/TAZOB 4.5 GM 4.5 GM in DEXTROSE 5%-WATER 100 ML IVPB SCH ×3 (02:45→18:29)
[2018-03-28] MEDS ORDERED: PIPERACILLIN/TAZOBACTAM 4.5 GM VIAL IVPB ONE ×3 (02:51→18:24)
[2018-03-28] MEDS ORDERED: DEXTROSE 5%-WATER 100 ML IVPB ONE ×3 (02:51→18:26)
[2018-03-28] MEDS: HEPARIN NA (PORCINE) 5,000 UNITS/ML 1ML VIAL SQ SCH ×3 (06:38→21:55)
[2018-03-28 07:18] LABS: ANION GAP 5 MMOL/L (8-16); BLOOD UREA NITROGEN 25 mg/dL (7-18); CALCIUM 8.4 mg/dL (8.5-10.1); CHLORIDE 94 mmol/L (98-107); CO2 38 mmol/L (21-32); CREATININE 0.6 mg/dL (0.7-1.3); GLUCOSE,RANDOM 123 mg/dL (74-106); POTASSIUM 4.8 mmol/L (3.5-5.1); SODIUM 137 mmol/L (136-145)
--- NOTE | 2018-03-28 08:53 | PN ---
Progress Note, Physician History of Present Illness: pulmonary alert,no distress,-sob,-congestion - Current Medication List Current Medications: Active Medications Albuterol Sulfate (Ventolin Hfa Inhaler -) 2 puff IH Q4H PRN PRN Reason: SHORT OF BREATH/WHEEZING Last Admin: 03/24/18 19:51 Dose: 2 puff Albuterol/Ipratropium (Duoneb -) 1 amp NEB Q4H [facility] Last Admin: 03/28/18 08:39 Dose: 1 amp Atorvastatin Calcium (Lipitor -) 40 mg PO HS [facility] Last Admin: 03/27/18 22:02 Dose: 40 mg Heparin Sodium (Porcine) (Heparin -) 5,000 unit SQ TID [facility] Last Admin: 03/28/18 06:38 Dose: 5,000 unit Piperacillin Sod/Tazobactam (Sod 4.5 gm/ Dextrose) 100 mls @ 200 mls/hr IVPB Q8H-IV [facility]; Protocol Last Admin: 03/28/18 02:45 Dose: 200 mls/hr Pantoprazole Sodium (Protonix -) 40 mg PO DAILY [facility] Last Admin: 03/27/18 09:58 Dose: 40 mg Prednisone (Deltasone -) 30 mg PO BID [facility] Last Admin: 03/27/18 22:02 Dose: 30 mg Solifenacin (Vesicare -) 5 mg PO DAILY [facility] Last Admin: 03/27/18 09:59 Dose: 5 mg - Objective Vital Signs: Vital Signs Temperature 98.9 F 03/27/18 20:30 Pulse Rate 82 03/28/18 06:00 Respiratory Rate 20 03/28/18 06:00 Blood Pressure 135/72 03/28/18 06:00 O2 Sat by Pulse Oximetry (%) 97 03/28/18 00:20 Constitutional: Yes: Well Nourished, Calm Eyes: Yes: WNL HENT: Yes: WNL Neck: Yes: WNL Cardiovascular: Yes: Regular Rate and Rhythm, S1, S2 Respiratory: Yes: Diminished Gastrointestinal: Yes: Normal Bowel Sounds, Soft Extremities: Yes: WNL Edema: No Labs: CBC, BMP 03/27/18 06:15 03/28/18 05:30 INR, PTT INR 1.18 (0.83-1.09) H 03/24/18 16:05 Laboratory Tests 03/27/18 14:05 ABG pH 7.40 ABG pCO2 at Pt Temp 66.3 H* ABG pO2 at Pt Temp 86.9 ABG HCO3 39.8 H ABG O2 Sat (Measured) 96.9 Oxygen Flow Rate 2l Problem List - Problems (1) Cerebral palsy Code(s): G80.9 - CEREBRAL PALSY, UNSPECIFIED (2) Pneumonia Code(s): J18.9 - PNEUMONIA, UNSPECIFIED ORGANISM (3) Respiratory failure with hypoxia and hypercapnia Code(s): J96.91 - RESPIRATORY FAILURE, UNSPECIFIED WITH HYPOXIA; J96.92 - RESPIRATORY FAILURE, UNSPECIFIED WITH HYPERCAPNIA (4) Sepsis Code(s): A41.9 - SEPSIS, UNSPECIFIED ORGANISM (5) Suprapubic catheter Code(s): Z93.59 - OTHER CYSTOSTOMY STATUS (6) Tachycardia Code(s): R00.0 - TACHYCARDIA, UNSPECIFIED Assessment/Plan IMP ACUTE HYPOXEMIC RESPIRATORY FAILURE IMPROVING ACUTE ON CHRONIC HYPERCAPNEIC RESPIRATORY FAILURE SEPSIS LIKELY PNEUMONIA ?UTI H/O CP H/O POLIO PLAN IV ABX PER ID INHALED BRONCHODILATORS NIPPV NEEDED O2 TO MAINTAIN O2 SAT 90% OR GREATER CHECK O2 SAT PRIOR TO DISCHARGE DR MUNOZ Problem List - Problems (1) Cerebral palsy Code(s): G80.9 - CEREBRAL PALSY, UNSPECIFIED (2) Pneumonia Code(s): J18.9 - PNEUMONIA, UNSPECIFIED ORGANISM (3) Respiratory failure with hypoxia and hypercapnia Code(s): J96.91 - RESPIRATORY FAILURE, UNSPECIFIED WITH HYPOXIA; J96.92 - RESPIRATORY FAILURE, UNSPECIFIED WITH HYPERCAPNIA (4) Sepsis Code(s): A41.9 - SEPSIS, UNSPECIFIED ORGANISM (5) Suprapubic catheter Code(s): Z93.59 - OTHER CYSTOSTOMY STATUS (6) Tachycardia Code(s): R00.0 - TACHYCARDIA, UNSPECIFIED
[2018-03-28] MEDS: predniSONE 20 MG TABLET (UD) PO SCH ×2 (10:52→21:55)
[2018-03-28] MEDS: PANTOPRAZOLE 40 MG TABLET (FP) PO SCH (10:52)
[2018-03-28] MEDS: SOLIFENACIN SUCCINATE 5 MG TAB (FP) PO SCH (10:52)
--- NOTE | 2018-03-28 13:07 | CON.NEP ---
Consult Consult Specialty:: nephrology Referred by:: nehemias Reason for Consultation:: hyperkalemia - History of Present Illness Chief Complaint: fever, recent pneumonia History of Present Illness: patient with cerebral palsy long history of being homebound chronic supra-pubic tube x 30 years s/p febrile illness and cough and wheezes recently hosp at [facility] for pna and sent home on abx had mild hyperkalemia and prerenal azotemia - History Source History Provided By: Medical Record - Past Medical History Additional Medical History: Cerebral Palsy. Polio with Left hemiparesis - Past Surgical History Past Surgical History: Yes: Appendectomy - Alcohol/Substance Use Hx Alcohol Use: No History of Substance Use: reports: None - Smoking History Smoking history: Never smoked - Social History ADL: Support Services History of Recent Travel: No Home Medications - Allergies Allergies/Adverse Reactions: Allergies Allergy/AdvReac Type Severity Reaction Status Date / Time shrimp Allergy Unknown Hives Verified 03/25/18 03:12 - Home Medications Home Medications: Ambulatory Orders Atorvastatin Ca [Lipitor] 40 mg PO HS 03/24/18 Baclofen 20 mg PO TID 03/24/18 Multivitamin [One Daily] 1 each PO DAILY 03/24/18 Oxybutynin Chloride [Ditropan Xl] 10 mg PO DAILY 03/24/18 traZODone HCL [Trazodone HCl] 50 mg PO HS 03/24/18 Nephrology Consult - Height Height: 5 ft 5 in - Weight Weight: 135 lb - BMI Body Mass Index (BMI): 22.4 - Lab Results CBC,BMP: CBC, BMP 03/27/18 06:15 03/28/18 05:30 Anion Gap: Anion Gap Anion Gap 5 MMOL/L (8-16) L 03/28/18 05:30 - Physical Examination Vital Signs: Vital Signs Temperature 98.9 F 03/27/18 20:30 Pulse Rate 82 03/28/18 06:00 Respiratory Rate 20 03/28/18 09:00 Blood Pressure 135/72 03/28/18 06:00 O2 Sat by Pulse Oximetry (%) 97 03/28/18 00:20 Constitutional: Yes: No Distress, Thin Eyes: Yes: WNL, Conjunctiva Clear, EOM Intact HENT: Yes: WNL, Atraumatic, Normocephalic Neck: Yes: WNL, Supple, Trachea Midline Cardiovascular: Yes: WNL, Regular Rate and Rhythm Respiratory: Yes: WNL, Regular, CTA Bilaterally Gastrointestinal: Yes: WNL, Normal Bowel Sounds Musculoskeletal: Yes: Other (atrophied limbs) Extremities: Yes: WNL Edema: No Integumentary: Yes: WNL Assessment/Plan Prerenal azotemia SPT ?chronic obstructive uropathy Prerenal azotemia Hyperkalemia Low phos could be nutritional Plan- sono of kidneys r/o obstructive component could cause high K+ f/u labs and phos
--- NOTE | 2018-03-28 17:54 | PN ---
Progress Note, Physician Chief Complaint: EVENTS AND NOTES REVIEWED NAD - Current Medication List Current Medications: Active Medications Albuterol Sulfate (Ventolin Hfa Inhaler -) 2 puff IH Q4H PRN PRN Reason: SHORT OF BREATH/WHEEZING Last Admin: 03/24/18 19:51 Dose: 2 puff Albuterol/Ipratropium (Duoneb -) 1 amp NEB Q4H [facility] Last Admin: 03/28/18 16:05 Dose: 1 amp Atorvastatin Calcium (Lipitor -) 40 mg PO HS [facility] Last Admin: 03/27/18 22:02 Dose: 40 mg Heparin Sodium (Porcine) (Heparin -) 5,000 unit SQ TID [facility] Last Admin: 03/28/18 06:38 Dose: 5,000 unit Piperacillin Sod/Tazobactam (Sod 4.5 gm/ Dextrose) 100 mls @ 200 mls/hr IVPB Q8H-IV [facility]; Protocol Last Admin: 03/28/18 10:52 Dose: 200 mls/hr Pantoprazole Sodium (Protonix -) 40 mg PO DAILY [facility] Last Admin: 03/28/18 10:52 Dose: 40 mg Prednisone (Deltasone -) 30 mg PO BID [facility] Last Admin: 03/28/18 10:52 Dose: 30 mg Solifenacin (Vesicare -) 5 mg PO DAILY [facility] Last Admin: 03/28/18 10:52 Dose: 5 mg - Objective Vital Signs: Vital Signs Temperature 98.2 F 03/28/18 14:00 Pulse Rate 95 H 03/28/18 14:00 Respiratory Rate 20 03/28/18 14:00 Blood Pressure 150/80 03/28/18 14:00 O2 Sat by Pulse Oximetry (%) 97 03/28/18 00:20 Constitutional: Yes: No Distress Eyes: Yes: WNL HENT: Yes: WNL Neck: Yes: WNL Cardiovascular: Yes: WNL Respiratory: Yes: WNL Gastrointestinal: Yes: WNL Genitourinary: Yes: Mckeon Present, Other Musculoskeletal: Yes: Muscle Weakness Extremities: Yes: Other Edema: No Peripheral Pulses WNL: Yes Integumentary: Yes: Other Wound/Incision: Yes: Dressing Dry and Intact Neurological: Yes: Pre-Existing Deficit, Weakness ...Motor Strength: LLE, RLE Psychiatric: Yes: Other Labs: CBC, BMP 03/27/18 06:15 03/28/18 05:30 INR, PTT INR 1.18 (0.83-1.09) H 03/24/18 16:05 Problem List - Problems (1) Cerebral palsy Code(s): G80.9 - CEREBRAL PALSY, UNSPECIFIED (2) Overactive bladder Code(s): N32.81 - OVERACTIVE BLADDER (3) Respiratory failure with hypoxia and hypercapnia Code(s): J96.91 - RESPIRATORY FAILURE, UNSPECIFIED WITH HYPOXIA; J96.92 - RESPIRATORY FAILURE, UNSPECIFIED WITH HYPERCAPNIA (4) Suprapubic catheter Code(s): Z93.59 - OTHER CYSTOSTOMY STATUS Assessment/Plan IV ABX CULTURES REVIEWED ID FOLLOW UP SUPRAPUBIC CATH RESISTANT UTI ON ZOSYN DVT PROPHYLAXIS
[2018-03-28] MEDS: ATORVASTATIN CA 40 MG TABLET (FP) PO SCH (21:55)
[2018-03-29] MEDS ORDERED: DEXTROSE 5%-WATER 100 ML IVPB ONE ×3 (01:24→17:01)
[2018-03-29] MEDS ORDERED: PIPERACILLIN/TAZOBACTAM 4.5 GM VIAL IVPB ONE ×3 (01:24→17:01)
[2018-03-29] MEDS: PIPERACILLIN/TAZOB 4.5 GM 4.5 GM in DEXTROSE 5%-WATER 100 ML IVPB SCH ×3 (01:31→17:38)
[2018-03-29] MEDS: ALBUTEROL SO4 2.5/IPRATROPIUM 0.5 INH SOL 3 ML VIAL.NEB. NEB SCH ×4 (04:50→16:23)
[2018-03-29] MEDS: HEPARIN NA (PORCINE) 5,000 UNITS/ML 1ML VIAL SQ SCH ×3 (05:19→21:43)
[2018-03-29 08:19] LABS: ALBUMIN 2.8 g/dl (3.4-5.0); ANION GAP 10 MMOL/L (8-16); BLOOD UREA NITROGEN 15 mg/dL (7-18); CALCIUM 8.7 mg/dL (8.5-10.1); CHLORIDE 91 mmol/L (98-107); CO2 35 mmol/L (21-32); CREATININE 0.6 mg/dL (0.7-1.3); GLUCOSE,RANDOM 111 mg/dL (74-106); POTASSIUM 4.9 mmol/L (3.5-5.1); SGOT/AST 31 U/L (15-37); SGPT/ALT 48 U/L (12-78); SODIUM 136 mmol/L (136-145)
[2018-03-29 08:21] LABS: ALK PHOS 66 U/L (45-117); BILIRUBIN,TOTAL 0.9 mg/dL (0.2-1.0); PHOSPHOROUS 3.7 mg/dL (2.5-4.9)
--- NOTE | 2018-03-29 08:36 | PN ---
Progress Note, Physician History of Present Illness: pulmonary alert,no distress,-sob,-congestion - Current Medication List Current Medications: Active Medications Albuterol Sulfate (Ventolin Hfa Inhaler -) 2 puff IH Q4H PRN PRN Reason: SHORT OF BREATH/WHEEZING Last Admin: 03/24/18 19:51 Dose: 2 puff Albuterol/Ipratropium (Duoneb -) 1 amp NEB Q4H [facility] Last Admin: 03/29/18 08:19 Dose: 1 amp Atorvastatin Calcium (Lipitor -) 40 mg PO HS [facility] Last Admin: 03/28/18 21:55 Dose: 40 mg Heparin Sodium (Porcine) (Heparin -) 5,000 unit SQ TID [facility] Last Admin: 03/29/18 05:19 Dose: 5,000 unit Piperacillin Sod/Tazobactam (Sod 4.5 gm/ Dextrose) 100 mls @ 200 mls/hr IVPB Q8H-IV [facility]; Protocol Last Admin: 03/29/18 01:31 Dose: 200 mls/hr Pantoprazole Sodium (Protonix -) 40 mg PO DAILY [facility] Last Admin: 03/28/18 10:52 Dose: 40 mg Prednisone (Deltasone -) 30 mg PO BID [facility] Last Admin: 03/28/18 21:55 Dose: 30 mg Solifenacin (Vesicare -) 5 mg PO DAILY [facility] Last Admin: 03/28/18 10:52 Dose: 5 mg - Objective Vital Signs: Vital Signs Temperature 98.8 F 03/29/18 05:17 Pulse Rate 85 03/29/18 05:17 Respiratory Rate 18 03/29/18 05:17 Blood Pressure 132/90 03/29/18 05:17 O2 Sat by Pulse Oximetry (%) 91 L 03/28/18 21:00 Constitutional: Yes: Well Nourished, Calm Eyes: Yes: WNL HENT: Yes: WNL Neck: Yes: WNL Cardiovascular: Yes: Regular Rate and Rhythm, S1, S2 Respiratory: Yes: CTA Bilaterally Gastrointestinal: Yes: Normal Bowel Sounds, Soft Extremities: Yes: WNL Edema: No Labs: CBC, BMP 03/27/18 06:15 03/29/18 05:30 INR, PTT INR 1.18 (0.83-1.09) H 03/24/18 16:05 Problem List - Problems (1) Cerebral palsy Code(s): G80.9 - CEREBRAL PALSY, UNSPECIFIED (2) Pneumonia Code(s): J18.9 - PNEUMONIA, UNSPECIFIED ORGANISM (3) Respiratory failure with hypoxia and hypercapnia Code(s): J96.91 - RESPIRATORY FAILURE, UNSPECIFIED WITH HYPOXIA; J96.92 - RESPIRATORY FAILURE, UNSPECIFIED WITH HYPERCAPNIA (4) Sepsis Code(s): A41.9 - SEPSIS, UNSPECIFIED ORGANISM (5) Suprapubic catheter Code(s): Z93.59 - OTHER CYSTOSTOMY STATUS (6) Tachycardia Code(s): R00.0 - TACHYCARDIA, UNSPECIFIED Assessment/Plan IMP ACUTE HYPOXEMIC RESPIRATORY FAILURE IMPROVING ACUTE ON CHRONIC HYPERCAPNEIC RESPIRATORY FAILURE SEPSIS LIKELY PNEUMONIA ?UTI H/O CP H/O POLIO PLAN ABX PER ID INHALED BRONCHODILATORS NIPPV NEEDED O2 TO MAINTAIN O2 SAT 90% OR GREATER CHECK O2 SAT PRIOR TO DISCHARGE DR MUNOZ Problem List - Problems (1) Cerebral palsy Code(s): G80.9 - CEREBRAL PALSY, UNSPECIFIED (2) Pneumonia Code(s): J18.9 - PNEUMONIA, UNSPECIFIED ORGANISM (3) Respiratory failure with hypoxia and hypercapnia Code(s): J96.91 - RESPIRATORY FAILURE, UNSPECIFIED WITH HYPOXIA; J96.92 - RESPIRATORY FAILURE, UNSPECIFIED WITH HYPERCAPNIA (4) Sepsis Code(s): A41.9 - SEPSIS, UNSPECIFIED ORGANISM (5) Suprapubic catheter Code(s): Z93.59 - OTHER CYSTOSTOMY STATUS (6) Tachycardia Code(s): R00.0 - TACHYCARDIA, UNSPECIFIED
[2018-03-29] MEDS: PANTOPRAZOLE 40 MG TABLET (FP) PO SCH (09:39)
[2018-03-29] MEDS: predniSONE 20 MG TABLET (UD) PO SCH ×2 (09:40→21:48)
[2018-03-29] MEDS: SOLIFENACIN SUCCINATE 5 MG TAB (FP) PO SCH (09:40)
--- NOTE | 2018-03-29 11:15 | PN ---
Progress Note, Physician Chief Complaint: ASLEEP NAD - Current Medication List Current Medications: Active Medications Albuterol Sulfate (Ventolin Hfa Inhaler -) 2 puff IH Q4H PRN PRN Reason: SHORT OF BREATH/WHEEZING Last Admin: 03/24/18 19:51 Dose: 2 puff Albuterol/Ipratropium (Duoneb -) 1 amp NEB Q4H [facility] Last Admin: 03/29/18 08:19 Dose: 1 amp Atorvastatin Calcium (Lipitor -) 40 mg PO HS [facility] Last Admin: 03/28/18 21:55 Dose: 40 mg Heparin Sodium (Porcine) (Heparin -) 5,000 unit SQ TID [facility] Last Admin: 03/29/18 05:19 Dose: 5,000 unit Piperacillin Sod/Tazobactam (Sod 4.5 gm/ Dextrose) 100 mls @ 200 mls/hr IVPB Q8H-IV [facility]; Protocol Last Admin: 03/29/18 09:39 Dose: 200 mls/hr Pantoprazole Sodium (Protonix -) 40 mg PO DAILY [facility] Last Admin: 03/29/18 09:39 Dose: 40 mg Prednisone (Deltasone -) 30 mg PO BID [facility] Last Admin: 03/29/18 09:40 Dose: 30 mg Solifenacin (Vesicare -) 5 mg PO DAILY [facility] Last Admin: 03/29/18 09:40 Dose: 5 mg - Objective Vital Signs: Vital Signs Temperature 98.8 F 03/29/18 05:17 Pulse Rate 85 03/29/18 05:17 Respiratory Rate 18 03/29/18 05:17 Blood Pressure 132/90 03/29/18 05:17 O2 Sat by Pulse Oximetry (%) 91 L 03/28/18 21:00 Constitutional: Yes: No Distress Cardiovascular: Yes: WNL Respiratory: Yes: WNL Gastrointestinal: Yes: WNL Genitourinary: Yes: Mckeon Present (SUPRAPUBIC CATH) Musculoskeletal: Yes: Muscle Weakness Edema: No Peripheral Pulses WNL: Yes Integumentary: Yes: Other Wound/Incision: Yes: Open to air Neurological: Yes: Pre-Existing Deficit ...Motor Strength: LLE, RLE Psychiatric: Yes: Other Labs: CBC, BMP 03/27/18 06:15 03/29/18 05:30 INR, PTT INR 1.18 (0.83-1.09) H 03/24/18 16:05 Problem List - Problems (1) Cerebral palsy Code(s): G80.9 - CEREBRAL PALSY, UNSPECIFIED (2) Overactive bladder Code(s): N32.81 - OVERACTIVE BLADDER (3) Respiratory failure with hypoxia and hypercapnia Code(s): J96.91 - RESPIRATORY FAILURE, UNSPECIFIED WITH HYPOXIA; J96.92 - RESPIRATORY FAILURE, UNSPECIFIED WITH HYPERCAPNIA (4) Suprapubic catheter Code(s): Z93.59 - OTHER CYSTOSTOMY STATUS Assessment/Plan IV ABX CULTURES REVIEWED ID FOLLOW UP SUPRAPUBIC CATH RESISTANT UTI ON ZOSYN DVT PROPHYLAXIS DC PLANNING
--- NOTE | 2018-03-29 20:10 | PN ---
Progress Note (short form) - Note Progress Note: problems Prerenal azotemia SPT x 30 years ?chronic obstructive uropathy admitted Prerenal azotemia s/p Hyperkalemia Low serum phos Current Medications Albuterol Sulfate (Ventolin Hfa Inhaler -) 2 puff IH Q4H PRN PRN Reason: SHORT OF BREATH/WHEEZING Last Admin: 03/24/18 19:51 Dose: 2 puff Atorvastatin Calcium (Lipitor -) 40 mg PO HS [facility] Last Admin: 03/28/18 21:55 Dose: 40 mg Heparin Sodium (Porcine) (Heparin -) 5,000 unit SQ TID [facility] Last Admin: 03/29/18 13:11 Dose: 5,000 unit Piperacillin Sod/Tazobactam (Sod 4.5 gm/ Dextrose) 100 mls @ 200 mls/hr IVPB Q8H-IV [facility]; Protocol Last Admin: 03/29/18 17:38 Dose: 200 mls/hr Pantoprazole Sodium (Protonix -) 40 mg PO DAILY [facility] Last Admin: 03/29/18 09:39 Dose: 40 mg Prednisone (Deltasone -) 30 mg PO BID [facility] Last Admin: 03/29/18 09:40 Dose: 30 mg Solifenacin (Vesicare -) 5 mg PO DAILY [facility] Last Admin: 03/29/18 09:40 Dose: 5 mg Last Vital Signs Temp Pulse Resp BP Pulse Ox 98.5 F 99 H 20 117/75 96 03/29/18 18:00 03/29/18 18:00 03/29/18 18:00 03/29/18 18:00 03/29/18 09:00 Lungs cler Heart reg Abd soft Ext no edema CBC, BMP 03/27/18 06:15 03/29/18 05:30 IMP- prerenal azotemia chronic SPT s/p Hyperkalemia upper tract obstruction ruled out (Renal sono normal) Plan- ensure hydration
[2018-03-29] MEDS: ATORVASTATIN CA 40 MG TABLET (FP) PO SCH (21:43)
[2018-03-30] MEDS: PIPERACILLIN/TAZOB 4.5 GM 4.5 GM in DEXTROSE 5%-WATER 100 ML IVPB SCH (02:40)
[2018-03-30] MEDS: HEPARIN NA (PORCINE) 5,000 UNITS/ML 1ML VIAL SQ SCH ×2 (05:37→15:34)
[2018-03-30] MEDS ORDERED: DEXTROSE 5%-WATER 100 ML IVPB ONE ×2 (08:32)
[2018-03-30] MEDS ORDERED: PIPERACILLIN/TAZOBACTAM 4.5 GM VIAL IVPB ONE ×2 (08:32)
--- NOTE | 2018-03-30 09:41 | PN ---
Progress Note, Physician History of Present Illness: pulmonary alert,comfortable,-resp distress - Current Medication List Current Medications: Active Medications Albuterol Sulfate (Ventolin Hfa Inhaler -) 2 puff IH Q4H PRN PRN Reason: SHORT OF BREATH/WHEEZING Last Admin: 03/24/18 19:51 Dose: 2 puff Atorvastatin Calcium (Lipitor -) 40 mg PO HS [facility] Last Admin: 03/29/18 21:43 Dose: 40 mg Heparin Sodium (Porcine) (Heparin -) 5,000 unit SQ TID [facility] Last Admin: 03/30/18 05:37 Dose: 5,000 unit Piperacillin Sod/Tazobactam (Sod 4.5 gm/ Dextrose) 100 mls @ 200 mls/hr IVPB Q8H-IV [facility]; Protocol Last Admin: 03/30/18 02:40 Dose: 200 mls/hr Pantoprazole Sodium (Protonix -) 40 mg PO DAILY [facility] Last Admin: 03/29/18 09:39 Dose: 40 mg Prednisone (Deltasone -) 30 mg PO BID [facility] Last Admin: 03/29/18 21:48 Dose: 30 mg Solifenacin (Vesicare -) 5 mg PO DAILY [facility] Last Admin: 03/29/18 09:40 Dose: 5 mg - Objective Vital Signs: Vital Signs Temperature 98.4 F 03/30/18 09:00 Pulse Rate 96 H 03/30/18 09:00 Respiratory Rate 18 03/30/18 09:00 Blood Pressure 104/50 03/30/18 09:00 O2 Sat by Pulse Oximetry (%) 93 L 03/30/18 09:00 Constitutional: Yes: Well Nourished, Calm Eyes: Yes: WNL HENT: Yes: WNL Neck: Yes: WNL Cardiovascular: Yes: Regular Rate and Rhythm, S1, S2 Respiratory: Yes: Diminished Gastrointestinal: Yes: Normal Bowel Sounds, Soft Extremities: Yes: WNL Edema: No Problem List - Problems (1) Cerebral palsy Code(s): G80.9 - CEREBRAL PALSY, UNSPECIFIED (2) Pneumonia Code(s): J18.9 - PNEUMONIA, UNSPECIFIED ORGANISM (3) Respiratory failure with hypoxia and hypercapnia Code(s): J96.91 - RESPIRATORY FAILURE, UNSPECIFIED WITH HYPOXIA; J96.92 - RESPIRATORY FAILURE, UNSPECIFIED WITH HYPERCAPNIA (4) Sepsis Code(s): A41.9 - SEPSIS, UNSPECIFIED ORGANISM (5) Suprapubic catheter Code(s): Z93.59 - OTHER CYSTOSTOMY STATUS (6) Tachycardia Code(s): R00.0 - TACHYCARDIA, UNSPECIFIED Assessment/Plan IMP ACUTE HYPOXEMIC RESPIRATORY FAILURE IMPROVED ACUTE ON CHRONIC HYPERCAPNEIC RESPIRATORY FAILURE SEPSIS LIKELY PNEUMONIA ?UTI H/O CP H/O POLIO PLAN ABX PER ID INHALED BRONCHODILATORS O2 TO MAINTAIN O2 SAT 90% OR GREATER CONSIDER BIPAP AT NIGHT AND PRN DR MUNOZ Problem List - Problems (1) Cerebral palsy Code(s): G80.9 - CEREBRAL PALSY, UNSPECIFIED (2) Pneumonia Code(s): J18.9 - PNEUMONIA, UNSPECIFIED ORGANISM (3) Respiratory failure with hypoxia and hypercapnia Code(s): J96.91 - RESPIRATORY FAILURE, UNSPECIFIED WITH HYPOXIA; J96.92 - RESPIRATORY FAILURE, UNSPECIFIED WITH HYPERCAPNIA (4) Sepsis Code(s): A41.9 - SEPSIS, UNSPECIFIED ORGANISM (5) Suprapubic catheter Code(s): Z93.59 - OTHER CYSTOSTOMY STATUS (6) Tachycardia Code(s): R00.0 - TACHYCARDIA, UNSPECIFIED
--- NOTE | 2018-03-30 09:52 | DS ---
Physical Examination Vital Signs: Vital Signs Temperature 98.4 F 03/30/18 09:00 Pulse Rate 96 H 03/30/18 09:00 Respiratory Rate 18 03/30/18 09:00 Blood Pressure 104/50 03/30/18 09:00 O2 Sat by Pulse Oximetry (%) 93 L 03/30/18 09:00 Cardiovascular: Yes: S1, S2, S3 Respiratory: Yes: Regular, CTA Bilaterally Gastrointestinal: Yes: Normal Bowel Sounds, Soft. No: Tenderness Labs: CBC, BMP 03/27/18 06:15 03/29/18 05:30 Discharge Summary Reason For Visit: SYSTEMIC INFLAMMATORY RESPONSE SYNDROME Current Active Problems Cerebral palsy (Acute) Overactive bladder (Acute) Pneumonia (Acute) Respiratory failure (Acute) Respiratory failure with hypoxia and hypercapnia (Acute) Sepsis (Acute) Suprapubic catheter (Acute) Tachycardia (Acute) UTI (urinary tract infection) (Acute) Hospital Course: HISTORY OF PRESENT ILLNESS: 67M w/ pmhx of cerebral palsy (with chronic suprapubic catheter x30 years), polio with L hemiparesis presented in the ED with shortness of breath. According to pt's sister and home health aide, pt was about to go home after attending a constitution party at his adult daycare center when he started complaining to the nurse at the center that he was having trouble breathing. The nurse at the adult daycare center contacted pt's family around 2:50pm and called EMS to bring pt to the hospital. Pt denies any symptoms earlier that day. Denies chest pain, headaches/dizziness, nausea/vomiting, abdominal pain, urinary/bowel symptoms, weakness. He does complain of acid reflux yesterday after eating spaghetti and took Tums which relieved his symptoms. During the past week, pt complained of a mild cough with no productive sputum. Pt also admits that he has been exposed to many people at his daycare center with a cold. Pt has a breathing machine at home for albuterol, but denies using it within the past week. Upon initial presentation, pt was found to be febrile at 102, tachycardic at 135 , with dry cough and wheezes. Of note, pt was recently admitted to [facility] for PNA and was discharged on antibiotics. Additionally, pt's suprapubic catheter is also changed once a month and was recently changed yesterday (03/23) by Dr. Coffman. ER course was notable for: (1) CXR, blood and urine cx pending (2) In the ED, pt given Vanc/Zosyn, Solumedrol, Tylenol (3) U/A: 2+ Pro, 1+ blood, 3+ LE Recent Travel: Denies PAST MEDICAL HISTORY: Cerebral palsy (w/ chronic suprapubic catheter x30yrs) Polio w/ L hemiparesis PAST SURGICAL HISTORY: Chronic suprapubic catheter appendectomy x20 years ago - Problems (1) Sepsis Assessment/Plan: - 2/2 CAP and UTI, r/o aspiration pna; -Pt has cloudy urine seen in reyna bag and attended a constitution party around others who were also sick. -Zosyn 4.5 gm IVPB A5J--JL follow augmentin -f/u blood, sputum, urine cx -f/u Legionella, S PNA Ag, RSV Microbiology 03/24/18 16:10 Blood Culture - Preliminary Blood - Peripheral Venous NO GROWTH OBTAINED AFTER 48 HOURS, INCUBATION TO CONTINUE FOR 3 DAYS. 03/24/18 16:05 Blood Culture - Preliminary Blood - Peripheral Venous NO GROWTH OBTAINED AFTER 48 HOURS, INCUBATION TO CONTINUE FOR 3 DAYS. 03/25/18 12:30 MRSA Screen - Final Nares - Right Nares NO MRSA ISOLATED 03/25/18 12:30 MRSA Screen - Final Nares - Left Nares NO MRSA ISOLATED -f/u lactate Laboratory Tests 03/24/18 03/24/18 03/25/18 16:05 16:05 07:06 WBC 18.4 H 11.9 H Lactic Acid 1.5 03/26/18 07:00 WBC 13.3 H Lactic Acid -f/u ID consult Code(s): A41.9 - SEPSIS, UNSPECIFIED ORGANISM (2) Cerebral palsy Assessment/Plan: . -hold Baclofen 20 mg PO TID due to SPRAY BLENDER depression given pt's current clinical state -Neuro noted -hold Trazodone 50 mg PO HS due to SPRAY BLENDER depression given pt's current clinical state Code(s): G80.9 - CEREBRAL PALSY, UNSPECIFIED (3) Respiratory failure Assessment/Plan: # Acute hypoxic hypercapnic respiratory failure -currently on nc -Improved -f/u pulm consult -f/u ABG -Duonebs 2.5 1 amp neg Q4H -Solumedrol 60 mg IVP E8T--blktq--de po prednisone -Ventolin inhaler 2 puff IH Q4H PRN Code(s): J96.90 - RESPIRATORY FAILURE, UNSP, UNSP W HYPOXIA OR HYPERCAPNIA (4) Tachycardia Assessment/Plan: -Improved - 2/2 sepsis, r/o arrhythmia -f/u cardio consult noted Code(s): R00.0 - TACHYCARDIA, UNSPECIFIED (5) Overactive bladder Assessment/Plan: Pt has been on chronic reyna x30 years due to urinary retention gets changed [id number] Code(s): N32.81 - OVERACTIVE BLADDER Condition: Improved - Instructions Diet, Activity, Other Instructions: see dr taveras in one week taper off prednisone as per dr taveras Referrals: Tamra Taveras [Primary Care Provider] - 1 Week Disposition: VNS/HOME HEALTH CARE - Home Medications Comprehensive Discharge Medication List: Ambulatory Orders Atorvastatin Ca [Lipitor] 40 mg PO HS 03/24/18 Baclofen 20 mg PO TID 03/24/18 Multivitamin [One Daily] 1 each PO DAILY 03/24/18 Oxybutynin Chloride [Ditropan Xl] 10 mg PO DAILY 03/24/18 Albuterol 2.5/Ipratropium 0.5 [Duoneb -] 1 amp NEB Q4H #120 amp 03/30/18 Albuterol Sulfate Inhaler - [Ventolin HFA Inhaler -] 2 puff IH Q4H PRN #1 inhaler 03/30/18 Amox-Tr/K Cl [Augmentin Suspension -] 750 mg PO BID@0800,1730 #120 ml 03/30/18 Pantoprazole Sodium [Protonix -] 40 mg PO DAILY #30 tablet.ec 03/30/18 Prednisone 10 mg PO BID #30 tablet 03/30/18
[2018-03-30] MEDS: PANTOPRAZOLE 40 MG TABLET (FP) PO SCH (10:28)
[2018-03-30] MEDS: predniSONE 20 MG TABLET (UD) PO SCH (10:28)
[2018-03-30] MEDS: SOLIFENACIN SUCCINATE 5 MG TAB (FP) PO SCH (10:28)
[2018-03-30 15:29] VITALS: BP 114/59; PULSE 93; TEMP 98.1
[2018-03-30] MEDS ORDERED: AMOX TR/POTASSIUM CLAVULANATE 250 MG/5 ML BOTTLE PO SCH (17:30)
== END 2018-03-30 18:34 | disposition home health service (06) | DRG 871 ==
LOC: EDBD 15:50 → JER 15:50 → JERBED 17:10 → J4W 19:06
PROVIDERS: ADMIT Internal Medicine; ATTEND Family Medicine
DX: A41.9 Sepsis, unspecified organism (principal); J69.0 Pneumonitis due to inhalation of food and vomit; J96.01 Acute respiratory failure with hypoxia; G93.49 Other encephalopathy; J96.02 Acute respiratory failure with hypercapnia; N39.0 Urinary tract infection, site not specified; G81.94 Hemiplegia, unspecified affecting left nondominant side; J98.11 Atelectasis; R00.0 Tachycardia, unspecified; G80.9 Cerebral palsy, unspecified; N32.81 Overactive bladder; F32.9 Major depressive disorder, single episode, unspecified; E78.5 Hyperlipidemia, unspecified; Z93.59 Other cystostomy status; E87.5 Hyperkalemia; E83.39 Other disorders of phosphorus metabolism; D69.6 Thrombocytopenia, unspecified; D72.829 Elevated white blood cell count, unspecified
CPT/HCPCS: 36415; 36600; 71045-TC-FY; 71250-TC; 76775-TC; 80048; 80053; 80061; 81003; 81015; 82803; 82962; 83605; 83721; 83735; 83880; 84100; 84484; 85025; 85610; 85730; 86850; 86900; 86901; 87040; 87081; 87086; 87899; 93005; 93010; 93306-TC; 94640; 94660; 99284-25; J0131; J1644; J7030; J7620